=== PATIENT | male | born 1970 | race Caucasian/White ===

== ENCOUNTER → 2019-01-01 | Outpatient (CLI) | payer OTHER, SELFPAY ==
[2019-01-01 10:09] LABS: Absolute Lymphocyte Count 3.62 X10^3/ul (0.83-4.51); Absolute Neutrophil Count 3.8 X10^3/uL (2.0-7.7); Basophil# 0.04 X10^3/uL; Basophil% 0.5 % (0-1); Eosinophil# 0.19 X10^3/uL; Eosinophils% 2.3 % (0-5); Hematocrit 47.7 % (40-54); Hemoglobin 16.5 g/dl (13.0-16.5); Lymphocyte # 3.62 X10^3/ul (4.0); Lymphocyte % 44.2 % (19-41); Mean Corp Hgb Conc 34.6 g/gl (32-36); Mean Corpuscular Hgb 32.1 pg (27.0-32.0); Mean Corpuscular Volume 92.8 fL (80-94); Mean Platelet Vol. 9.6 fl (6.2-12.0); Monocyte# 0.55 X10^3/uL; Monocyte% 6.7 % (0-10); Neutrophil # 3.76 X10^3/uL (2.7-7.7); Neutrophil % 45.9 % (47-70); Platelet Count 169 K/mm3 (150-450); RBC Distribution Width CV 12.8 % (11.6-14.6); RBC Distribution Width SD 43.4 fl (35.1-43.9); Red Blood Count 5.14 M/mm3 (4.6-6.2); White Blood Count 8.2 K/mm3 (4.4-11.0)
[2019-01-01 10:20] LABS: POSITIVE COUNT NO; POSITIVE DIFFERENTIAL NO; POSITIVE MORPHOLOGY NO
[2019-01-01 10:24] LABS: Hemoglobin A1c 10.2 % (4.2-6.3)
[2019-01-01 10:49] LABS: ALB/GLOB Ratio 1.4 RATIO (0.9-2.4); AST(SGOT) 26 U/L (15-37); Alanine Aminotransfer ALT/SGPT 35 U/L (16-61); Alkaline Phosphatase 84 U/L (45-117); Anion Gap 5 (5-15); BUN 12 mg/dL (7-18); BUN/Creat Ratio 16.6 RATIO (10-20); Calcium,Total 8.4 mg/dL (8.5-10.1); Chloride 100 mmol/L (98-107); Cholesterol 157 mg/dL (200); Creatinine, Serum 0.72 mg/dL (0.70-1.30); EST Glomerular Filtration Rate 124 mL/min (>60); Est Glom Filt Rate - Afr Amer 150 mL/min (>60); Globulin 2.8 g/dL (2.2-4.2); Glucose 162 mg/dL (74-106); High Density Lipoprotein 20 mg/dL; Microalbumin,Random Urine 9.6 mg/L (NO RANGE EST.); Microalbumin:Creatinine Ratio 18.5 mg/g CRE (<30 mg/g CRE); Potassium 3.9 mmol/L (3.5-5.1); Protein, Total 6.8 g/dL (6.4-8.2); Sodium Level 135 mmol/L (136-145); Thyroid Stim Hormone (TSH) 1.74 uIU/mL (0.358-3.74); Triglycerides 806 mg/dL
== END | disposition home or self-care (01) ==
PROVIDERS: Family Provider Family Medicine; PCP Family Medicine; Referring Provider Family Medicine; Visit Provider Family Medicine
DX: E11.9 Type 2 diabetes mellitus without complications (principal); Z72.0 Tobacco use
CPT/HCPCS: 36415; 80053; 80061; 82043; 82570; 83036; 84443; 85025

== ENCOUNTER → 2019-05-10 | Outpatient (CLI) | payer OTHER, SELFPAY ==
[2019-05-10 10:29] LABS: ALB/GLOB Ratio 1.1 RATIO (0.9-2.4); AST(SGOT) 16 U/L (15-37); Alanine Aminotransfer ALT/SGPT 30 U/L (16-61); Albumin, Serum 3.7 g/dL (3.2-5.0); Alkaline Phosphatase 61 U/L (45-117); Anion Gap 8 (5-15); BUN 17 mg/dL (7-18); BUN/Creat Ratio 19.9 RATIO (10-20); Calcium,Total 8.7 mg/dL (8.5-10.1); Chloride 107 mmol/L (98-107); Cholesterol 107 mg/dL (200); Creatinine, Serum 0.86 mg/dL (0.70-1.30); EST Glomerular Filtration Rate 102 mL/min (>60); Est Glom Filt Rate - Afr Amer 123 mL/min (>60); Globulin 3.3 g/dL (2.2-4.2); Glucose 113 mg/dL (74-106); High Density Lipoprotein 28 mg/dL; Potassium 4.3 mmol/L (3.5-5.1); Sodium Level 141 mmol/L (136-145); Triglycerides 277 mg/dL; Very Low Density Lipoprotein 55 mg/dL (5-40)
[2019-05-10 10:30] LABS: Hemoglobin A1c 6.9 % (4.2-6.3)
== END | disposition home or self-care (01) ==
LOC: MFPLAB 08:15
PROVIDERS: Family Provider Family Medicine; PCP Family Medicine; Visit Provider Family Medicine
DX: E11.9 Type 2 diabetes mellitus without complications (principal); E78.1 Pure hyperglyceridemia
CPT/HCPCS: 36415; 80053; 80061; 83036

== ENCOUNTER → 2021-03-06 12:39 | Outpatient (CLI) | payer SELFPAY ==
[2021-03-06 15:19] LABS: Absolute Lymphocyte Count 3.07 X10^3/uL (0.83-4.51); Absolute Neutrophil Count 5.7 X10^3/uL (2.0-7.7); Basophil# 0.06 X10^3/uL; Basophil% 0.6 % (0-1); Eosinophil# 0.11 X10^3/uL; Eosinophils% 1.1 % (0-5); Hematocrit 51.3 % (40-54); Hemoglobin 17.2 g/dL (13.0-16.5); Lymphocyte # 3.07 X10^3/ul (0.83-4.51); Lymphocyte % 31.7 % (19-41); Mean Corp Hgb Conc 33.5 g/dL (32-36); Mean Corpuscular Volume 95.5 fL (80-94); Monocyte# 0.71 X10^3/uL; Monocyte% 7.3 % (0-10); NRBC Flagged by Analyzer 0 % (0-5); Neutrophil # 5.69 X10^3/uL (2.7-7.7); Neutrophil % 58.8 % (47-70); Platelet Count 204 K/mm3 (150-450); RBC Distribution Width CV 12.5 % (11.6-14.6); RBC Distribution Width SD 43.9 fl (35.1-43.9); Red Blood Count 5.37 M/mm3 (4.6-6.2); White Blood Count 9.7 K/mm3 (4.4-11.0)
[2021-03-06 15:37] LABS: Hemoglobin A1c 10.2 % (3.8-5.6)
[2021-03-06 15:42] LABS: ALB/GLOB Ratio 1.2 RATIO (0.9-2.4); AST(SGOT) 23 U/L (15-37); Alanine Aminotransfer ALT/SGPT 41 U/L (16-61); Alkaline Phosphatase 93 U/L (45-117); Anion Gap 8 (5-15); BUN 16 mg/dL (7-18); BUN/Creat Ratio 18.9 RATIO (10-20); Calcium,Total 8.8 mg/dL (8.5-10.1); Chloride 101 mmol/L (98-107); Cholesterol 138 mg/dL (200); Creatinine, Serum 0.85 mg/dL (0.70-1.30); EST Glomerular Filtration Rate 102 mL/min (>60); Est Glom Filt Rate - Afr Amer 124 mL/min (>60); Globulin 3.4 g/dL (2.2-4.2); Glucose 203 mg/dL (74-106); High Density Lipoprotein 22 mg/dL; Magnesium 1.7 mg/dL (1.6-2.6); Potassium 4.2 mmol/L (3.5-5.1); Protein, Total 7.4 g/dL (6.4-8.2); Sodium Level 135 mmol/L (136-145)
== END ==
PROVIDERS: PCP Family Medicine; Referring Provider Family Medicine; Visit Provider Family Medicine
DX: E11.9 Type 2 diabetes mellitus without complications (principal)
CPT/HCPCS: 36415; 80053; 82465; 83036; 83718; 83735; 85025

== ENCOUNTER → 2022-01-28 | Outpatient (CLI) | payer OTHER, SELFPAY ==
[2022-01-28 10:42] LABS: Hemoglobin A1c 9.2 % (3.8-5.6)
[2022-01-28 11:01] LABS: Microalbumin,Random Urine 10.8 mg/L (NO RANGE EST.); Microalbumin:Creatinine Ratio 6.7 mg/g CRE (<30 mg/g CRE)
[2022-01-28 11:51] LABS: ALB/GLOB Ratio 1.3 RATIO (0.9-2.4); AST(SGOT) 31 U/L (15-37); Alanine Aminotransfer ALT/SGPT 55 U/L (16-61); Albumin, Serum 3.9 g/dL (3.2-5.0); Alkaline Phosphatase 89 U/L (45-117); Anion Gap 5 (5-15); BUN 17 mg/dL (7-18); BUN/Creat Ratio 17.9 RATIO (10-20); Calcium,Total 8.8 mg/dL (8.5-10.1); Chloride 99 mmol/L (98-107); Creatinine, Serum 0.95 mg/dL (0.70-1.30); EST Glomerular Filtration Rate 90 mL/min (>60); Est Glom Filt Rate - Afr Amer 108 mL/min (>60); Globulin 2.9 g/dL (2.2-4.2); Glucose 280 mg/dL (74-106); Potassium 4.3 mmol/L (3.5-5.1); Protein, Total 6.8 g/dL (6.4-8.2); Sodium Level 132 mmol/L (136-145)
== END | disposition home or self-care (01) ==
LOC: MFPLAB 08:26
PROVIDERS: PCP Family Medicine; Visit Provider Family Medicine
DX: E11.65 Type 2 diabetes mellitus with hyperglycemia (principal)
CPT/HCPCS: 36415; 80053; 82043; 82570; 83036

== ENCOUNTER → 2022-07-24 | Outpatient (CLI) | payer MEDICARE, SELFPAY ==
[2022-07-24 10:19] LABS: Absolute Lymphocyte Count 4.28 X10^3/uL (0.83-4.51); Absolute Neutrophil Count 5.6 X10^3/uL (2.0-7.7); Basophil# 0.06 X10^3/uL; Basophil% 0.5 % (0-1); Eosinophil# 0.22 X10^3/uL; Hematocrit 48.3 % (40-54); Hemoglobin 16.1 g/dL (13.0-16.5); Lymphocyte # 4.28 X10^3/ul (0.83-4.51); Lymphocyte % 38.5 % (19-41); Mean Corp Hgb Conc 33.3 g/dL (32-36); Mean Corpuscular Hgb 32.4 pg (27.0-32.0); Mean Corpuscular Volume 97.2 fL (80-94); Monocyte# 0.92 X10^3/uL; Monocyte% 8.3 % (0-10); NRBC Flagged by Analyzer 0 % (0-5); Neutrophil # 5.56 X10^3/uL (2.7-7.7); Neutrophil % 50.1 % (47-70); Platelet Count 210 K/mm3 (150-450); RBC Distribution Width CV 13.1 % (11.6-14.6); RBC Distribution Width SD 46.7 fl (35.1-43.9); Red Blood Count 4.97 M/mm3 (4.6-6.2); White Blood Count 11.1 K/mm3 (4.4-11.0)
[2022-07-24 10:47] LABS: Hemoglobin A1c 8.5 % (3.8-5.6)
[2022-07-24 10:48] LABS: Microalbumin,Random Urine 13.1 mg/L (NO RANGE EST.); Microalbumin:Creatinine Ratio 7.2 mg/g CRE (<30 mg/g CRE)
[2022-07-24 10:57] LABS: ALB/GLOB Ratio 1.3 RATIO (0.9-2.4); AST(SGOT) 25 U/L (15-37); Alanine Aminotransfer ALT/SGPT 42 U/L (16-61); Albumin, Serum 3.6 g/dL (3.2-5.0); Alkaline Phosphatase 81 U/L (45-117); Anion Gap 8 (5-15); BUN 18 mg/dL (7-18); BUN/Creat Ratio 21.9 RATIO (10-20); Calcium,Total 8.5 mg/dL (8.5-10.1); Chloride 104 mmol/L (98-107); Creatinine, Serum 0.82 mg/dL (0.70-1.30); EST Glomerular Filtration Rate 105 mL/min (>60); Est Glom Filt Rate - Afr Amer 127 mL/min (>60); Globulin 2.8 g/dL (2.2-4.2); Glucose 171 mg/dL (74-106); Potassium 4.2 mmol/L (3.5-5.1); Protein, Total 6.4 g/dL (6.4-8.2); Sodium Level 138 mmol/L (136-145); Thyroid Stim Hormone (TSH) 1.91 uIU/mL (0.358-3.74)
== END | disposition home or self-care (01) ==
PROVIDERS: PCP Family Medicine; Referring Provider Family Medicine; Visit Provider Family Medicine
DX: E66.01 Morbid (severe) obesity due to excess calories (principal); E11.65 Type 2 diabetes mellitus with hyperglycemia; Z68.36 Body mass index [BMI] 36.0-36.9, adult
CPT/HCPCS: 36415; 80053; 82043; 82570; 83036; 84443; 85025

== ENCOUNTER → 2022-12-16 | Outpatient (CLI) | payer MEDICARE, SELFPAY ==
[2022-12-16 10:43] LABS: ALB/GLOB Ratio 1.2 RATIO (0.9-2.4); AST(SGOT) 27 U/L (15-37); Alanine Aminotransfer ALT/SGPT 47 U/L (16-61); Albumin, Serum 3.8 g/dL (3.2-5.0); Alkaline Phosphatase 66 U/L (45-117); Anion Gap 5 (5-15); BUN 12 mg/dL (7-18); BUN/Creat Ratio 12.7 RATIO (10-20); Calcium,Total 9.1 mg/dL (8.5-10.1); Chloride 103 mmol/L (98-107); Creatinine, Serum 0.95 mg/dL (0.70-1.30); EST Glomerular Filtration Rate 89 mL/min (>60); Est Glom Filt Rate - Afr Amer 108 mL/min (>60); Globulin 3.3 g/dL (2.2-4.2); Glucose 176 mg/dL (74-106); Hemoglobin A1c 8.3 % (3.8-5.6); Potassium 4.4 mmol/L (3.5-5.1); Protein, Total 7.1 g/dL (6.4-8.2); Sodium Level 136 mmol/L (136-145); Thyroid Stim Hormone (TSH) 1.45 uIU/mL (0.358-3.74)
[2022-12-16 11:14] LABS: Microalbumin,Random Urine < 5.0 mg/L (NO RANGE EST.)
== END | disposition home or self-care (01) ==
LOC: MFPLAB 08:25
PROVIDERS: PCP Family Medicine; Visit Provider Family Medicine
DX: E11.9 Type 2 diabetes mellitus without complications (principal)
CPT/HCPCS: 36415; 80053; 82043; 82570; 83036; 84443

== ENCOUNTER → 2023-05-12 | Outpatient (CLI) | payer MEDICARE, SELFPAY ==
[2023-05-12 10:34] LABS: Absolute Lymphocyte Count 2.65 X10^3/uL (0.83-4.51); Basophil# 0.05 X10^3/uL; Basophil% 0.7 % (0-1); Eosinophil# 0.16 X10^3/uL; Eosinophils% 2.1 % (0-5); Hemoglobin 17.8 g/dL (13.0-16.5); Lymphocyte # 2.65 X10^3/ul (0.83-4.51); Lymphocyte % 34.6 % (19-41); Mean Corpuscular Hgb 31.3 pg (27.0-32.0); Mean Corpuscular Volume 97.7 fL (80-94); Mean Platelet Vol. 9.5 fl (6.2-12.0); Monocyte# 0.79 X10^3/uL; Monocyte% 10.3 % (0-10); NRBC Flagged by Analyzer 0 % (0-5); Neutrophil # 3.97 X10^3/uL (2.7-7.7); Neutrophil % 51.6 % (47-70); Platelet Count 209 K/mm3 (150-450); RBC Distribution Width CV 13.4 % (11.6-14.6); Red Blood Count 5.69 M/mm3 (4.6-6.2); White Blood Count 7.7 K/mm3 (4.4-11.0)
[2023-05-12 10:40] LABS: Hematocrit 55.6 % (40-54)
[2023-05-12 11:31] LABS: ALB/GLOB Ratio 1.1 RATIO (0.9-2.4); AST(SGOT) 23 U/L (15-37); Alanine Aminotransfer ALT/SGPT 38 U/L (16-61); Albumin, Serum 3.9 g/dL (3.2-5.0); Alkaline Phosphatase 68 U/L (45-117); Anion Gap 3 (5-15); BUN 16 mg/dL (7-18); BUN/Creat Ratio 21.3 RATIO (10-20); Calcium,Total 9.5 mg/dL (8.5-10.1); Chloride 107 mmol/L (98-107); Cholesterol 109 mg/dL (200); Creatinine, Serum 0.75 mg/dL (0.70-1.30); EST Glomerular Filtration Rate 117 mL/min (>60); Est Glom Filt Rate - Afr Amer 141 mL/min (>60); Globulin 3.5 g/dL (2.2-4.2); Glucose 66 mg/dL (74-106); High Density Lipoprotein 33 mg/dL; Potassium 4.8 mmol/L (3.5-5.1); Protein, Total 7.4 g/dL (6.4-8.2); Sodium Level 139 mmol/L (136-145)
[2023-05-12 18:54] LABS: Hemoglobin A1c 6.8 % (3.8-5.6)
== END | disposition home or self-care (01) ==
LOC: MFPLAB 09:13
PROVIDERS: PCP Family Medicine; Visit Provider Family Medicine
DX: E11.65 Type 2 diabetes mellitus with hyperglycemia (principal)
CPT/HCPCS: 36415; 80053; 82465; 83036; 83718; 85025

== ENCOUNTER → 2023-12-01 | Outpatient (CLI) | payer MEDICARE, SELFPAY ==
[2023-12-01 13:21] LABS: ALB/GLOB Ratio 1.3 RATIO (0.9-2.4); AST(SGOT) 23 U/L (15-37); Alanine Aminotransfer ALT/SGPT 40 U/L (16-61); Albumin, Serum 4.1 g/dL (3.2-5.0); Alkaline Phosphatase 71 U/L (45-117); Anion Gap 5 (5-15); BUN 19 mg/dL (7-18); Calcium,Total 9.3 mg/dL (8.5-10.1); Chloride 105 mmol/L (98-107); Cholesterol 119 mg/dL (200); EST Glomerular Filtration Rate 94 mL/min (>60); Est Glom Filt Rate - Afr Amer 113 mL/min (>60); Globulin 3.2 g/dL (2.2-4.2); Glucose 116 mg/dL (74-106); High Density Lipoprotein 31 mg/dL; Potassium 4.4 mmol/L (3.5-5.1); Protein, Total 7.3 g/dL (6.4-8.2); Sodium Level 138 mmol/L (136-145); Triglycerides 225 mg/dL; Very Low Density Lipoprotein 45 mg/dL (5-40)
[2023-12-01 13:45] LABS: Hemoglobin A1c 7.6 % (3.8-5.6)
== END | disposition home or self-care (01) ==
LOC: MFPLAB 09:41
PROVIDERS: PCP Family Medicine; Visit Provider Family Medicine
DX: E11.65 Type 2 diabetes mellitus with hyperglycemia (principal); E78.5 Hyperlipidemia, unspecified; I10 Essential (primary) hypertension
CPT/HCPCS: 36415; 80053; 80061; 83036

== ENCOUNTER → 2024-05-03 | Outpatient (CLI) | payer MEDICARE, SELFPAY ==
[2024-05-03 10:30] LABS: Color, Urine Yellow (Yellow); Glucose, Dipstick Normal (Normal); Ketone-Dipstick 5 mg/dl (Negative); Leukocyte Esterase-Dipstick 500 /ul (Negative); Nitrite-Dipstick Negative (Negative); Occult Blood-Urine Negative /ul (Negative); Protein-Dipstick 15 mg/dl (Negative); Specific Gravity, Urine 1.025 (1.002-1.030); Urine Bilirubin Dipstick Negative (Negative); Urine Clarity Sl. Cloudy (Clear); Urine Urobilinogen 1 mg/dl (Normal)
[2024-05-03 10:50] LABS: ALB/GLOB Ratio 1.1 RATIO (0.9-2.4); AST(SGOT) 15 U/L (15-37); Alanine Aminotransfer ALT/SGPT 30 U/L (16-61); Albumin, Serum 3.6 g/dL (3.2-5.0); Alkaline Phosphatase 87 U/L (45-117); Anion Gap 7 (5-15); BUN 17 mg/dL (7-18); BUN/Creat Ratio 18.4 RATIO (10-20); Calcium,Total 9.5 mg/dL (8.5-10.1); Chloride 102 mmol/L (98-107); Cholesterol 98 mg/dL (200); Creatinine, Serum 0.92 mg/dL (0.70-1.30); EST Glomerular Filtration Rate 91 mL/min (>60); Est Glom Filt Rate - Afr Amer 111 mL/min (>60); Globulin 3.2 g/dL (2.2-4.2); Glucose 220 mg/dL (74-106); High Density Lipoprotein 25 mg/dL; Potassium 4.6 mmol/L (3.5-5.1); Protein, Total 6.8 g/dL (6.4-8.2); Sodium Level 138 mmol/L (136-145); Triglycerides 398 mg/dL; Very Low Density Lipoprotein 80 mg/dL (5-40)
[2024-05-03 10:53] LABS: Hemoglobin A1c 8.2 % (3.8-5.6)
[2024-05-04 10:54] LABS: Microalbumin,Random Urine 20.8 mg/L (NO RANGE EST.)
== END | disposition home or self-care (01) ==
LOC: MFPLAB 08:02
PROVIDERS: PCP Family Medicine; Visit Provider Family Medicine
DX: E11.65 Type 2 diabetes mellitus with hyperglycemia (principal)
CPT/HCPCS: 36415; 80053; 80061; 81002; 82043; 82570; 83036

== ENCOUNTER → 2024-07-06 | Outpatient (CLI) | payer MEDICARE, SELFPAY ==
[2024-07-06 10:46] LABS: Cholesterol 137 mg/dL (200); High Density Lipoprotein 29 mg/dL
[2024-07-06 11:25] LABS: Hemoglobin A1c 8.7 % (3.8-5.6)
[2024-07-07 04:08] LABS: LDL, Direct 120295 49 mg/dL (0-99)
== END | disposition home or self-care (01) ==
LOC: MTLAB 07:06
PROVIDERS: PCP Family Medicine; Referring Provider Family Medicine; Visit Provider Family Medicine
DX: E11.65 Type 2 diabetes mellitus with hyperglycemia (principal)
CPT/HCPCS: 36415; 82465; 83036; 83718; 83721

== ENCOUNTER → 2024-09-21 | Outpatient (CLI) | payer MEDICARE, SELFPAY ==
[2024-09-22 08:10] LABS: C-Peptide 5.8 ng/mL (1.1-4.4)
== END | disposition home or self-care (01) ==
LOC: MTLAB 07:18
PROVIDERS: PCP Family Medicine; Referring Provider Family Medicine; Visit Provider Family Medicine
DX: K86.89 Other specified diseases of pancreas (principal)
CPT/HCPCS: 84681

== ENCOUNTER → 2024-09-27 | Outpatient (CLI) | payer MEDICARE, SELFPAY ==
[2024-09-27 10:37] LABS: Absolute Lymphocyte Count 2.67 X10^3/uL (0.83-4.51); Basophil# 0.05 X10^3/uL; Basophil% 0.6 % (0-1); Eosinophil# 0.15 X10^3/uL; Eosinophils% 1.7 % (0-5); Hematocrit 51.5 % (40-54); Hemoglobin 16.3 g/dL (13.0-16.5); Lymphocyte # 2.67 X10^3/ul (0.83-4.51); Lymphocyte % 30.4 % (19-41); Mean Corp Hgb Conc 31.7 g/dL (32-36); Mean Corpuscular Hgb 30.5 pg (27.0-32.0); Mean Corpuscular Volume 96.4 fL (80-94); Mean Platelet Vol. 9.9 fl (6.2-12.0); Monocyte# 0.84 X10^3/uL; Monocyte% 9.6 % (0-10); NRBC Flagged by Analyzer 0 % (0-5); Neutrophil # 5.04 X10^3/uL (2.7-7.7); Neutrophil % 57.2 % (47-70); Platelet Count 202 K/mm3 (150-450); RBC Distribution Width CV 12.3 % (11.6-14.6); RBC Distribution Width SD 43.9 fl (35.1-43.9); Red Blood Count 5.34 M/mm3 (4.6-6.2); White Blood Count 8.8 K/mm3 (4.4-11.0)
[2024-09-27 11:14] LABS: AST(SGOT) 23 U/L (15-37); Alanine Aminotransfer ALT/SGPT 39 U/L (16-61); Albumin, Serum 3.6 g/dL (3.2-5.0); Alkaline Phosphatase 95 U/L (45-117); Anion Gap 6 (5-15); BUN 13 mg/dL (7-18); BUN/Creat Ratio 14.5 RATIO (10-20); Chloride 101 mmol/L (98-107); EST Glomerular Filtration Rate 95 mL/min (>60); Est Glom Filt Rate - Afr Amer 115 mL/min (>60); Globulin 3.5 g/dL (2.2-4.2); Glucose 226 mg/dL (74-106); Potassium 4.6 mmol/L (3.5-5.1); Protein, Total 7.1 g/dL (6.4-8.2); Sodium Level 136 mmol/L (136-145)
[2024-09-28 15:07] LABS: Adrenocorticotropic Hormone 11.7 pg/mL (7.2-63.3)
== END | disposition home or self-care (01) ==
LOC: MFPLAB 09:15
PROVIDERS: PCP Family Medicine; Referring Provider Family Medicine; Visit Provider Family Medicine
DX: E24.9 Cushing's syndrome, unspecified (principal)
CPT/HCPCS: 36415; 80053; 82024; 82533; 85025

== ENCOUNTER → 2024-09-28 | Outpatient (CLI) | payer MEDICARE, SELFPAY ==
[2024-10-06 17:07] LABS: Cortisol, Free 24Ur 5 ug/24 hr (5-64); Cortisol, Urinary Free 2 ug/L (Undefined)
== END | disposition home or self-care (01) ==
LOC: MFPLAB 11:22
PROVIDERS: PCP Family Medicine; Referring Provider Family Medicine; Visit Provider Family Medicine
DX: K86.89 Other specified diseases of pancreas (principal); E11.65 Type 2 diabetes mellitus with hyperglycemia
CPT/HCPCS: 36415; 81050; 82530; 82533; 82653

== ENCOUNTER → 2025-01-31 | Outpatient (CLI) | payer MEDICARE, SELFPAY ==
--- OUTSIDE RECORDS SUMMARY | 2025-01-31 07:32 | XMS RPT_ITS | CCD ---
Author Organization [facility] Care Team Providers Care Senior Engineering Team Leader Name Role Phone Jose More Unavailable Unavail able FREE, TEXT ENTRY Unavailable Unavailable Abe Soto DO Unavailable Unavailable Abe Soto Unavailable Unavailable Abe Soto Unavailable Unavailable Ball, Khadar Primary Care Unavailable Ball, Khadar Attending Unavailable Ball, Khadar Primary Care Unavailable Ball, Khadar Attending Unavailable Ball, Khadar Referring Unavailable Ball, Khadar Primary Care Unavailable Ball, Khadar Attending Unavailable Ball, Khadar Referring Unavailable Ball, Khadar Referring Unavailable Ball, Khadar Primary Care Unavailable Ball, Khadar Attending Unavailable Ball, Khadar Primary Care Unavailable Ball, Khadar Attending Unavailable Ball, Khadar Referring Unavailable Ball, Khadar Primary Care Unavailable Ball, Khadar Attending Unavailable Medications Completed/Discontinued Medications Medication Drug Class(es) Dates Sig (Normalized) Sig (Original) atorvastatin 20 mg oral tablet (2 sources) HMG-CoA Reductase Inhibitor Start: 10-18-2013 take 1 tablet by mouth once daily Atorvastatin Calcium 20 MG Oral Tablet TAKE 1 TABLET EVERY DAY Quantity: 90 Refills: 3 Abe Soto DO Start : 18-Oct-2013 Active ciprofloxacin 3 mg/ml / dexamethasone 1 mg/ml otic suspension (2 sources) Corticosteroid, Quinolone Antimicrobial Start: 04-13-2018 Ciprodex 0.3-0.1 % Otic Suspension INSTILL 3 DROPS IN AFFECTED EAR(S) TWICE DAILY. Quantity: 1 Refills: 1 Abe Soto DO Start : 13-Apr-2018 Active 7.5 ML Bottle glimepiride 2 mg oral tablet (2 sources) Sulfonylurea Start: 05-27-2018 take 1 tablet by mouth once daily Glimepiride 2 MG Oral Tablet TAKE 1 TABLET EVERY DAY DIRECTED Quantity: 30 Refills: 0 Abe Soto DO Start : 27-May-2018 Active lisinopril 10 mg oral tablet (2 sources) Angiotensin Converting Enzyme Inhibitor Start: 03-01-2014 take 1 tablet by mouth once daily Lisinopril 10 MG Oral Tablet TAKE 1 TABLET BY MOUTH EVERY DAY DIRECTED Quantity: 90 Refills: 3 Abe Soto DO Start : 01-Mar-2014 Active 24 hr metFORMIN hydrochloride 500 mg extended release oral tablet (2 sources) Biguanide Start: 11-09-2015 take 2 tablets by mouth twice daily metFORMIN HCl ER 500 MG Oral Tablet Extended Release 24 Hour TAKE 2 TABLETS TWICE DAILY Quantity: 360 Refills: 0 Abe Soto DO Start : 09-Nov-2015 Active sertraline 100 mg oral tablet (2 sources) Serotonin Reuptake Inhibitor Start: 07-22-2014 take 1 tablet by mouth once daily Sertraline HCl - 100 MG Oral Tablet TAKE 1 TABLET EVERY DAY Quantity: 90 Refills: Abe Martel DO Start : 22-Jul-2014 Active Chantix Starting Month Lv 0.5 MG X 11 & 1 MG X 42 Oral Tablet (2 sources) Partial Cholinergic Nicotinic Agonist Start: 05-03-2014 Chantix Starting Month Lv 0.5 MG X 11 & 1 MG X 42 Oral Tablet TAKE ONE 0.5MG TABLET DAILY ON DAYS 1-3, THEN ONE 0.5MG TABLET TWICE DAILY ON DAYS 4-7, THEN ONE 1MG TABLET TWICE DAILY THEREAFTER. Quantity: 2 Refills: 0 Abe Soto DO Start : 03-May-2014 Active Problems Active Problems Problem Classification Problem Date Documented Date Episodic/Chronic Adjustment disorders (2 sources) Adjustment disorder; Translations: [Unspecified adjustment reaction] Chronic Anxiety disorders (2 sources) Anxiety; Translations: [Anxiety state, unspecified] Chronic Diabetes mellitus with complications (1 source) Type 2 diabetes mellitus with hyperglycemia; Translations: [Type 2 diabetes mellitus with hyperglycemia] Onset: 08-04-2024 Chronic Diabetes mellitus without complication (2 sources) Diabetes mellitus; Translations: [Diabetes mellitus without mention of complication, type II or unspecified type, not stated as uncontrolled] Chronic Disorders of lipid metabolism (4 sources) Primary hypertriglyceridemia; Translations: [Pure hyperglyceridemia] Chronic Immunizations and screening for infectious disease (4 sources) Vaccination needed; Translations: [Need for prophylactic vaccination and inoculation against unspecified single disease] Episodic Other ear and sense organ disorders (2 sources) Otitis externa; Translations: [Infective otitis externa, unspecified] Chronic Other endocrine disorders (1 source) 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, unspecified; 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, 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 Other liver diseases (2 sources) Increased bilirubin level; Translations: [Disorders of bilirubin excretion] Episodic Other lower respiratory disease (2 sources) Dyspnea on exertion; Translations: [Shortness of breath] Episodic Other non-traumatic joint disorders (4 sources) Joint pain; Translations: [Pain in joint, site unspecified] Episodic Other nutritional; endocrine; and metabolic disorders (2 sources) Obesity; Translations: [Obesity, unspecified] Chronic Otitis media and related conditions (2 sources) Acute left otitis media; Translations: [Unspecified otitis media] Episodic Pancreatic disorders (not diabetes) (1 source) Other specified diseases of pancreas; Translations: [Other specified diseases of pancreas] Onset: 10-13-2024 Episodic Residual codes; unclassified (2 sources) History finding; Translations: [Other specified conditions influencing health status] Episodic Spondylosis; intervertebral disc disorders; other back problems (4 sources) Low back pain; Translations: [Lumbago] Episodic Unclassified (3 sources) Abnormal electrocardiogram [ECG] [EKG]; Translations: [Electrocardiogram abnormal] Onset: 06-26-2017 Episodic Unclassified (2 sources) Shortness of breath / R06.02(ICD-10) Onset: 06-26-2017 Unclassified (2 sources) Abnormal electrocardiogram [ECG] [EKG] / R94.31(ICD-10) Onset: 06-26-2017 Past or Other Problems Problem Classification Problem Date Documented Da te Episodic/Chronic Other lower respiratory disease (1 source) Shortness of breath; Translations: [Shortness of breath] Onset: 06-26-2017 Episodic NEGATED: Highlighted row has not occurred!Residual codes; unclassified (2 sources) Disease Episodic Results Test Name Value Interpretation Reference Range Facility Cortisol, 24 HR UR Freeon CORTISOL,F/24hr 5 ug/24 hr Normal 5-64 [facility] Comment on above: Order Comment: Test( s) [id number]-Haoqjpze,F,ug/L,Uwas developed and its performance characteristicsdetermined by [employer]. It has not been cleared or approvedby the Food and Drug Administration. Performed By: #### L 501.9985, L500.4100, L500.4050 #### [facility] [address] [place], [address] CORTISOL,U FREE 2 ug/L Normal Undefined [facility] Comment on above: Order Comment: Test( s) [id number]-Ryjbapos,F,ug/L,Uwas developed and its performance characteristicsdetermined by [facility]. It has not been cleared or approvedby the Food and Drug Administration. Performed By: #### L 501.9985, L500.4100, L500.4050 #### [facility] [address] [place], [address] Adrenocorticotropic Hormoneo n 09-28-2024 ACTH 11.7 pg/mL Normal 7.2-63.3 [facility] Comment on above: Order Comment: Order Date: 09/27/24Order Info: [id number] - ACTHN24 hour Result Comment: ACTH reference interval for samples collected between 7 and 10 AM. Performed at: [address] [id number] Carpet Inspector Finished: Geraldo Ruiz PhD, Phone: [phone] Performed By: #### L 501.9985, L500.4100, L500.4050 #### [facility] [address] [place], [address] CORTISOL SERUMon 09-28-2024 CORTISOL 1.10 ug/dL Low 3.44-22.45 [facility] Comment on above: Result Comment: Adul t (AM) 5.27 - 22.45 ug/dL Adult (PM) 3.44 - 16.76 ug/dL Performed By: #### L 501.9985, L500.4100, L500.4050 #### [facility] [address] [place], [address] CBC W/Diff, Automatedon 09-18 Absolute Lymph 2.67 X10 3/uL Normal 0.83-4.51 [facility] Comment on above: Performed By: #### L 100.0100 #### [facility] [address] [place], [address] Absolute Neut 5.0 X10 3/uL Normal 2.0-7.7 [facility] Comment on above: Performed By: #### L 100.0100 #### [facility] [address] [place], [address] Basophils/100 WBC (Bld) 0.6 % Normal 0-1 [facility] Comment on above: Performed By: #### L 100.0100 #### [facility] [address] [place], [address] Eosinophils/100 WBC (Bld) 1.7 % Normal 0-5 [facility] Comment on above: Performed By: #### L 100.0100 #### [facility] [address] [place], [address] Erythrocyte distribution width (RBC) [Ratio] 12.3 % Normal 11.6-14.6 [facility] Comment on above: Performed By: #### L 100.0100 #### [facility] [address] [place], [address] Hematocrit (Bld) [Volume fraction] 51.5 % Normal 40-54 [facility] Comment on above: Performed By: #### L 100.0100 #### [facility] [address] [place], [address] Hemoglobin (Bld) [Mass/Vol] 16.3 g/dL Normal 13.0-16.5 [facility] Comment on above: Performed By: #### L 100.0100 #### [facility] [address] [place], [address] IG% 0.500 Normal 0.0-0.9 [facility] Comment on above: Result Comment: IG% - Immature Granulocytes (promyelocytes, myelocytes and metamyelocytes) > 1% indicates that a LEFT SHIFT is Present. Performed By: #### L 100.0100 #### [facility] [address] [place], [address] Lymphocytes/100 WBC (Bld) 30.4 % Normal 19-41 [facility] Comment on above: Performed By: #### L 100.0100 #### [facility] [address] [place], [address] MCH (RBC) [Entitic mass] 30.5 pg Normal 27.0-32.0 [facility] Comment on above: Performed By: #### L 100.0100 #### [facility] [address] [place], [address] MCHC (RBC) [Mass/Vol] 31.7 g/dL Low 32-36 [facility] [place] Comment on above: Performed By: #### L 100.0100 #### [facility] [address] [place], [address] MCV (RBC) [Entitic vol] 96.4 fL High 80-94 [facility] Comment on above: Performed By: #### L 100.0100 #### [facility] [address] [place], [address] Monocytes/100 WBC (Bld) 9.6 % Normal 0-10 [facility] Comment on above: Performed By: #### L 100.0100 #### [facility] [address] [place], [address] Neutrophils/100 WBC (Bld) 57.2 % Normal 47-70 [facility] Comment on above: Performed By: #### L 100.0100 #### [facility] [address] [place], [address] Nucleated RBC (Bld) [#/Vol] 0 10*3/uL Normal 0-5 [facility] Comment on above: Performed By: #### L 100.0100 #### [facility] [address] [place], [address] Platelet mean volume (Bld) [Entitic vol] 9.9 fL Normal 6.2-12.0 [facility] Comment on above: Performed By: #### L 100.0100 #### [facility] [address] [place], [address] Platelets (Bld) [#/Vol] 202 10*3/uL Normal 150-450 [facility] Comment on above: Performed By: #### L 100.0100 #### [facility] [address] [place], [address] RBC (Bld) [#/Vol] 5.34 10*6/uL Normal 4.6-6.2 [facility] Comment on above: Performed By: #### L 100.0100 #### [facility] [address] [place], [address] RDW SD 43.9 fl Normal 35.1-43.9 [facility] Comment on above: Performed By: #### L 100.0100 #### [facility] [address] [place], [address] WBC (Bld) [#/Vol] 8.8 10*3/uL Normal 4.4-11.0 [facility] Comment on above: Performed By: #### L 100.0100 #### [facility] [address] [place], [address] CORTISOL SERUMon 09-27-2024 CORTISOL 4.70 ug/dL Normal 3.44-22.45 [facility] Comment on above: Order Comment: Inter face Comments:24 hourOrder Date: 09/27/24Order Info: 2143-6 - CORT24 hour24 hour Result Comment: Adul t (AM) 5.27 - 22.45 ug/dL Adult (PM) 3.44 - 16.76 ug/dL Performed By: #### L 501.9985, L500.4100, L500.4050 #### [facility] [address] [place], [address] Comprehensive Metabolic Prof ilon 09-27-2024 Albumin [Mass/Vol] 3.6 g/dL Normal 3.2-5.0 [facility] Comment on above: Order Comment: Order Date: 09/27/24 Order Info: 0786-1 - CMP 24 hour Performed By: #### L 3300.1000, L500.4050 #### [facility] [address] [place], [address] Albumin/Globulin [Mass ratio] 1.0 {ratio} Normal 0.9-2.4 [facility] Comment on above: Order Comment: Order Date: 09/27/24 Order Info: 0786-1 - CMP 24 hour Performed By: #### L 3300.1000, L500.4050 #### [facility] [address] [place], [address] ALK P 95 U/L Normal 45-117 [facility] Comment on above: Order Comment: Order Date: 09/27/24 Order Info: 0786-1 - CMP 24 hour Performed By: #### L 3300.1000, L500.4050 #### [facility] [address] [place], [address] ALT [Catalytic activity/Vol] 39 U/L Normal 16-61 [facility] Comment on above: Order Comment: Order Date: 09/27/24 Order Info: 0786-1 - CMP 24 hour Performed By: #### L 3300.1000, L500.4050 #### [facility] [address] [place], [address] AST [Catalytic activity/Vol] 23 U/L Normal 15-37 [facility] Comment on above: Order Comment: Order Date: 09/27/24 Order Info: 0786-1 - CMP 24 hour Performed By: #### L 3300.1000, L500.4050 #### [facility] [address] [place], [address] Bilirubin [Mass/Vol] 0.90 mg/dL Normal 0.20-1.00 [place] Comment on above: Order Comment: Order Date: 09/27/24 Order Info: 0786-1 - CMP 24 hour Result Comment: For patients on eltrombopag therapy, use of Dimension [place] TBIL is not recommended. Performed By: #### L 3300.1000, L500.4050 #### [facility] [address] [place], [address] BUN/CRE 14.5 RATIO Normal 10-20 [facility] Comment on above: Order Comment: Order Date: 09/27/24 Order Info: 0786-1 - CMP 24 hour Performed By: #### L 3300.1000, L500.4050 #### [facility] [address] [place], [address] CA,Total 9.0 mg/dL Normal 8.5-10.1 [facility] Comment on above: Order Comment: Order Date: 09/27/24 Order Info: 0786-1 - CMP 24 hour Performed By: #### L 3300.1000, L500.4050 #### [facility] [address] [place], [address] Chloride [Moles/Vol] 101 mmol/L Normal 98-107 [place] Comment on above: Order Comment: Order Date: 09/27/24 Order Info: 0786-1 - CMP 24 hour Performed By: #### L 3300.1000, L500.4050 #### [facility] [address] [place], [address] CO2 [Moles/Vol] 29.0 mmol/L Normal 21.0-32.0 [facility] Comment on above: Order Comment: Order Date: 09/27/24 Order Info: 0786-1 - CMP 24 hour Performed By: #### L 3300.1000, L500.4050 #### [facility] [address] [place], [address] Creatinine [Mass/Vol] 0.90 mg/dL Normal 0.70-1.30 [facility] Comment on above: Order Comment: Order Date: 09/27/24 Order Info: 0786-1 - [facility] 24 hour Result Comment: The validity of the calculated GFR GFRAA in patients over 70 years has not been determined. Clinical correlation is essential. Performed By: #### L 3300.1000, L500.4050 #### [facility] [address] [place], [address] EST GFR - AA 115 mL/min Normal >60 [facility] Comment on above: Order Comment: Order Date: 09/27/24 Order Info: 0786-1 - [facility] 24 hour Result Comment: Afri can [place] GFR Calc Performed By: #### L 3300.1000, L500.4050 #### [facility] [address] [place], [address] GAP 6 Normal 5-15 [facility] Comment on above: Order Comment: Order Date: 09/27/24 Order Info: 0786-1 - [facility] 24 hour Performed By: #### L 3300.1000, L500.4050 #### [facility] [address] [place], [address] GFR/1.73 sq M.predicted among non-blacks MDRD (S/P/Bld) [Vol rate/Area] 95 mL/min/{1.73_m2} Normal >60 [facility] Comment on above: Order Comment: Order Date: 09/27/24 Order Info: 0786-1 - [facility] 24 hour Result Comment: Non- GFR Calc Performed By: #### L 3300.1000, L500.4050 #### [facility] [address] [place], [address] Globulin (S) [Mass/Vol] 3.5 g/dL Normal 2.2-4.2 [facility] Comment on above: Order Comment: Order Date: 09/27/24 Order Info: 0786-1 - CMP 24 hour Performed By: #### L 3300.1000, L500.4050 #### [facility] [address] [place], [address] Glucose [Mass/Vol] 226 mg/dL High 74-106 [facility] Comment on above: Order Comment: Order Date: 09/27/24 Order Info: 0786-1 - CMP 24 hour Result Comment: Gluc ose result greater than or equal to 200 mg/dL suggests DIABETES MELLITUS per A.D.A. criteria. Performed By: #### L 3300.1000, L500.4050 #### [facility] [address] [place], [address] Potassium [Moles/Vol] 4.6 mmol/L Normal 3.5-5.1 [facility] Comment on above: Order Comment: Order Date: 09/27/24 Order Info: 0786-1 - CMP 24 hour Performed By: #### L 3300.1000, L500.4050 #### [facility] [address] [place], [address] Sodium [Moles/Vol] 136 mmol/L Normal 136-145 [facility] Comment on above: Order Comment: Order Date: 09/27/24 Order Info: 0786-1 - CMP 24 hour Performed By: #### L 3300.1000, L500.4050 #### [facility] [address] [place], [address] T PROT 7.1 g/dL Normal 6.4-8.2 [facility] Comment on above: Order Comment: Order Date: 09/27/24 Order Info: 0786-1 - CMP 24 hour Performed By: #### L 3300.1000, L500.4050 #### [facility] [address] [place], [place], [id number] Urea nitrogen [Mass/Vol] 13 mg/dL Normal 7-18 [facility] Comment on above: Order Comment: Order Date: 09/27/24 Order Info: 0786-1 - CMP 24 hour Performed By: #### L 3300.1000, L500.4050 #### [facility] [address] [place], [place], [address] C-Peptideon 09-22-2024 C PEPTIDE 5.8 ng/mL High 1.1-4.4 [facility] Comment on above: Order Comment: Order Date: 07/12/24 Order Info: 1986-04 - CPEP ELASTASE WAS ORDERED BUT CAME IN A BAGGY. CANCELED Result Comment: C-Pe ptide reference interval is for fasting patients. Performed at: [facility] [id number] Carpet Inspector Finished: Geraldo Ruiz PhD, Phone: [phone] Performed By: #### L 2605.4394 #### [facility] [address] [place], [place], [address] LDL, Directon 07-07-2024 Cholesterol in LDL [Mass/Vol] 49 mg/dL Normal 0-99 [facility] Comment on above: Order Comment: Order Date: 05/10/24 Order Info: [id number] - LDLD Result Comment: Perf ormed at: [facility] [employer] [id number] Carpet Inspector Finished: Geraldo Ruiz PhD, Phone: [phone] Performed By: #### L 501.4900, [id number], L501.6400, L3300.6619 #### [facility] [address] [place], [place], [id number] COMMENT TNP Normal . [facility] Comment on above: Order Comment: Order Date: 05/10/24 Order Info: 48844-0 - LDLD Performed By: #### L 501.4900, L501.9985, L501.6400, L3300.4498 #### [facility] [address] [place], [address] Cholesterolon 07-06-2024 Cholesterol [Mass/Vol] 137 mg/dL Normal 200 [facility] Comment on above: Order Comment: Order Date: 05/10/24 Order Info: 2092-10 - CHOL Order Info: 2085-04 - HDL Result Comment: <200 mg/dL Desirable 200-240 mg/dL Borderline >240 mg/dL High Risk Performed By: #### L 501.4900, L501.9985, L501.6400, L3300.4490 #### [facility] [address] [place], [address] Hemoglobin A1con 07-06-2024 HbA1c (Bld) [Mass fraction] 8.7 % High 3.8-5.6 [facility] Comment on above: Order Comment: Order Date: 05/10/24 Order Info: 4548-4 - A1C Result Comment: Norm al < 5.7 % Prediabetic 5.7 - 6.4 % Diabetic >or= 6.5 % Please note range changes. Performed By: #### L 501.4900, L501.9985, L501.6400, L3300.4490 #### [facility] [address] [place], [address] High Density Lipoproteinon 09-05-2023 Cholesterol in HDL [Mass/Vol] 29 mg/dL Low [facility] Comment on above: Order Comment: Order Date: 05/10/24 Order Info: 2092-10 - CHOL Order Info: 2085-04 - HDL Result Comment: The drugs N-Acetylcysteine and Metamizole may falsely depress this assay. Reference Range HDL <40 mg/dL Low HDL Cholesterol HDL >or= 60 mg/dL High HDL Cholesterol Performed By: #### L 501.4900, L501.9985, L501.6400, L3300.4490 #### [facility] [address] [place], [address] Microalb:Creat Ratio,Random URon 05-04-2024 Creatinine [Mass/Vol] 299.00 mg/dL Normal NO RAN GE EST. [facility] Comment on above: Order Comment: PER O FFICE-ADD ON TO TEST DONE 05-03Interce Comments:add onOrder Date: 05/04/24Order Info: [id number] - MIACREComments: add on Performed By: #### L 501.9985, L500.4100, L500.4050 #### [facility] [address] [place], [address] MALB:CRE 7.0 mg/g CRE Normal <30 mg/g CRE [facility] Comment on above: Order Comment: PER O FFICE-ADD ON TO TEST DONE 05-03 Comments:add onOrder Date: 05/04/24Order Info: [id number] - MIACREComments: add on Performed By: #### L 501.9985, L500.4100, L500.4050 #### [facility] [address] [place], [place], [id number] MICROALBUMIN,UR 20.8 mg/L Normal NO RANGE EST. [facility] Comment on above: Order Comment: PER O FFICE-ADD ON TO TEST DONE 05-03Inter Comments:add onOrder Date: 05/04/24Order Info: [id number] - MIACREComments: add on Performed By: #### L 501.9985, L500.4100, L500.4050 #### [facility] [address] [place], [address] Comprehensive Metabolic Prof ilon 05-03-2024 Albumin [Mass/Vol] 3.6 g/dL Normal 3.2-5.0 [facility] Comment on above: Order Comment: Order Date: 05/03/24Order Info: 0786-1 - CMPOrder Info: [id number] - LIPID Performed By: #### L 501.9985, L500.4100, L500.4050 #### [facility] [address] [place], [address] Albumin/Globulin [Mass ratio] 1.1 {ratio} Normal 0.9-2.4 [facility] Comment on above: Order Comment: Order Date: 05/03/24Order Info: 0786-1 - CMPOrder Info: [id number] - LIPID Performed By: #### L 501.9985, L500.4100, L500.4050 #### [facility] [address] [place], [address] ALK P 87 U/L Normal 45-117 [facility] Comment on above: Order Comment: Order Date: 05/03/24Order Info: 785- - CMPOrder Info: [id number] - LIPID Performed By: #### L 501.9985, L500.4100, L500.4050 #### [facility] [address] [place], [address] ALT [Catalytic activity/Vol] 30 U/L Normal 16-61 [facility] Comment on above: Order Comment: Order Date: 05/03/24Order Info: 07- - CMPOrder Info: [id number] - LIPID Performed By: #### L 501.9985, L500.4100, L500.4050 #### [facility] [address] [place], [address] AST [Catalytic activity/Vol] 15 U/L Normal 15-37 [facility] Comment on above: Order Comment: Order Date: 05/03/24Order Info: [id number] - CMPOrder Info: [id number] - LIPID Performed By: #### L [id number], L500.4100, L500.4050 #### [facility] [address] [place], [address] Bilirubin [Mass/Vol] 0.70 mg/dL Normal 0.20-1.00 [place] Comment on above: Order Comment: Order Date: 05/03/24Order Info: 07-1 - CMPOrder Info: [id number] - LIPID Result Comment: For patients on eltrombopag therapy, use of Dimension [place] TBIL is not recommended. Performed By: #### L 501.9985, L500.4100, L500.4050 #### [facility] [address] [place], [address] BUN/CRE 18.4 RATIO Normal 10-20 [facility] Comment on above: Order Comment: Order Date: 05/03/24Order Info: [id number] - CMPOrder Info: [id number] - LIPID Performed By: #### L 501.9985, L500.4100, L500.4050 #### [facility] [address] [place], [address] CA,Total 9.5 mg/dL Normal 8.5-10.1 [facility] Comment on above: Order Comment: Order Date: 05/03/24Order Info: [id number] - CMPOrder Info: [id number] - LIPID Performed By: #### L [id number], L500.4100, L500.4050 #### [facility] [address] [place], [address] Chloride [Moles/Vol] 102 mmol/L Normal 98-107 [place] Comment on above: Order Comment: Order Date: 05/03/24Order Info: [id number] - CMPOrder Info: [id number] - LIPID Performed By: #### L 501.9985, L500.4100, L500.4050 #### [facility] [address] [place], [address] CO2 [Moles/Vol] 29.0 mmol/L Normal 21.0-32.0 [facility] Comment on above: Order Comment: Order Date: 05/03/24Order Info: [id number] - CMPOrder Info: [id number] - LIPID Performed By: #### L [id number], L500.4100, L500.4050 #### [facility] [address] [place], [address] Creatinine [Mass/Vol] 0.92 mg/dL Normal 0.70-1.30 [facility] [place] Comment on above: Order Comment: Order Date: 05/03/24Order Info: [id number] - CMPOrder Info: [id number] - LIPID Result Comment: The validity of the calculated GFR GFRAA in patients over 70 years has not been determined. Clinical correlation is essential. Performed By: #### L 501.9985, L500.4100, L500.4050 #### [facility] [address] [place], [address] EST GFR - AA 111 mL/min Normal >60 [facility] Comment on above: Order Comment: Order Date: 05/03/24Order Info: [id number] - CMPOrder Info: [id number] - LIPID Result Comment: Afri can [place]kin[place] GFR Calc Performed By: #### L 501.9985, L500.4100, L500.4050 #### [facility] [address] [place], [address] GAP 7 Normal 5-15 [facility] Comment on above: Order Comment: Order Date: 05/03/24Order Info: [id number]- - CMPOrder Info: [id number] - LIPID Performed By: #### L 501.9985, L500.4100, L500.4050 #### [facility] [address] [place], [address] GFR/1.73 sq M.predicted among non-blacks MDRD (S/P/Bld) [Vol rate/Area] 91 mL/min/{1.73_m2} Normal >60 [facility] Comment on above: Order Comment: Order Date: 05/03/24Order Info: [id number] - CMPOrder Info: [id number] - LIPID Result Comment: Non- GFR Calc Performed By: #### L 501.9985, L500.4100, L500.4050 #### [facility] [address] [place], [address] Globulin (S) [Mass/Vol] 3.2 g/dL Normal 2.2-4.2 [facility] Comment on above: Order Comment: Order Date: 05/03/24Order Info: 07- - CMPOrder Info: [id number] - LIPID Performed By: #### L 501.9985, L500.4100, L500.4050 #### [facility] [address] [place], [address] Glucose [Mass/Vol] 220 mg/dL High 74-106 [facility] Comment on above: Order Comment: Order Date: 05/03/24Order Info: [id number] - CMPOrder Info: [id number] - LIPID Result Comment: Gluc ose result greater than or equal to 200 mg/dL suggests DIABETES MELLITUS per A.D.A. criteria. Performed By: #### L 501.9985, L500.4100, L500.4050 #### [facility] [address] [place], [address] Potassium [Moles/Vol] 4.6 mmol/L Normal 3.5-5.1 [facility] [place] Comment on above: Order Comment: Order Date: 05/03/24Order Info: [id number] - CMPOrder Info: [id number] - LIPID Performed By: #### L 501.9985, L500.4100, L500.4050 #### [facility] [address] [place], [address] Sodium [Moles/Vol] 138 mmol/L Normal 136-145 [facility] Comment on above: Order Comment: Order Date: 05/03/24Order Info: [id number]- - CMPOrder Info: [id number] - LIPID Performed By: #### L 501.9985, L500.4100, L500.4050 #### [facility] [address] [place], [address] T PROT 6.8 g/dL Normal 6.4-8.2 [facility] Comment on above: Order Comment: Order Date: 05/03/24Order Info: [id number] - CMPOrder Info: [id number] - LIPID Performed By: #### L [id number], L500.4100, L500.4050 #### [facility] [address] [place], [address] Urea nitrogen [Mass/Vol] 17 mg/dL Normal 7-18 [facility] Comment on above: Order Comment: Order Date: 05/03/24Order Info: [id number] - CMPOrder Info: [id number] - LIPID Performed By: #### L [id number], L500.4100, L500.4050 #### [facility] [address] [place], [address] Hemoglobin A1con 05-03-2024 HbA1c (Bld) [Mass fraction] 8.2 % High 3.8-5.6 [facility] Comment on above: Order Comment: Order Date: 05/03/24Order Info: [id number] - A1C Result Comment: Norm al < 5.7 % Prediabetic 5.7 - 6.4 % Diabetic >or= 6.5 % Please note range changes. Performed By: #### L 501.9985, L500.4100, L500.4050 #### [facility] [address] [place], [address] Lipid Profileon 05-03-2024 Cholesterol [Mass/Vol] 98 mg/dL Normal 200 [facility] Comment on above: Order Comment: Order Date: 05/03/24Order Info: [id number] - CMPOrder Info: [id number] - LIPID Result Comment: <200 mg/dL Desirable 200-240 mg/dL Borderline >240 mg/dL High Risk Performed By: #### L 501.9985, L500.4100, L500.4050 #### [facility] [address] [place], [address] Cholesterol in HDL [Mass/Vol] 25 mg/dL Low [facility] Comment on above: Order Comment: Order Date: 05/03/24Order Info: [id number]- - CMPOrder Info: [id number] - LIPID Result Comment: The drugs N-Acetylcysteine and Metamizole may falsely depress this assay. Reference Range HDL <40 mg/dL Low HDL Cholesterol HDL >or= 60 mg/dL High HDL Cholesterol Performed By: #### L 501.9985, L500.4100, L500.4050 #### [facility] [address] [place], [address] Cholesterol in LDL [Mass/Vol] -7 mg/dL Low 0-130 [facility] Comment on above: Order Comment: Order Date: 05/03/24Order Info: [id number]- - CMPOrder Info: [id number] - LIPID Performed By: #### L 501.9985, L500.4100, L500.4050 #### [facility] [address] [place], [address] Cholesterol in VLDL [Mass/Vol] 80 mg/dL High 5-40 [facility] Comment on above: Order Comment: Order Date: 05/03/24Order Info: [id number]- - CMPOrder Info: [id number] - LIPID Performed By: #### L 501.9985, L500.4100, L500.4050 #### [facility] [address] [place], [address] Triglyceride [Mass/Vol] 398 mg/dL High [facility] Comment on above: Order Comment: Order Date: 05/03/24Order Info: [id number]- - CMPOrder Info: [id number] - LIPID Result Comment: The drugs N-Acetylcysteine and Metamizole may falsely depress this assay. Serum Triglycerides Reference Interval Normal <150 mg/dL Borderline high 150 - 199 mg/dL High 200 - 499 mg/dL Very High > or = 500 mg/dL Performed By: #### L 501.9985, L500.4100, L500.4050 #### [facility] [address] [place], [address] Urinalysis, Routine (Dipstic k)on 05-03-2024 BILIRUBIN URINE Negative Normal Negative [facility] Comment on above: Order Comment: Order Date: 05/03/24Order Info: [id number] - UACOLLECTOR TO SPECIFY Performed By: #### L 501.9985, L500.4100, L500.4050 #### [facility] [address] [place], [address] Clarity (U) Sl. Cloudy Normal Clear [facility] Comment on above: Order Comment: Order Date: 05/03/24Order Info: [id number] - UACOLLECTOR TO SPECIFY Performed By: #### L 501.9985, L500.4100, L500.4050 #### [facility] [address] [place], [address] Color (U) Yellow Normal Yellow [facility] Comment on above: Order Comment: Order Date: 05/03/24Order Info: [id number] - UACOLLECTOR TO SPECIFY Performed By: #### L 501.9985, L500.4100, L500.4050 #### [facility] [address] [place], [address] GLUCOSE, UR Normal Normal Normal [facility] Comment on above: Order Comment: Order Date: 05/03/24Order Info: [id number] - UACOLLECTOR TO SPECIFY Performed By: #### L 501.9985, L500.4100, L500.4050 #### [facility] [address] [place], [address] KETONE UR 5 mg/dl Abnormal Negative [facility] Comment on above: Order Comment: Order Date: 05/03/24Order Info: [id number] - UACOLLECTOR TO SPECIFY Performed By: #### L 501.9985, L500.4100, L500.4050 #### [facility] [address] [place], [address] LEUK ESTERASE 500 /ul Abnormal Negative [facility] Comment on above: Order Comment: Order Date: 05/03/24Order Info: 609-08 - UACOLLECTOR TO SPECIFY Performed By: #### L 501.9985, L500.4100, L500.4050 #### [facility] [address] [place], [address] Nitrite Ql (U) Negative Normal Negative [facility] Comment on above: Order Comment: Order Date: 05/03/24Order Info: 609-08 - UACOLLECTOR TO SPECIFY Performed By: #### L 501.9985, L500.4100, L500.4050 #### [facility] [address] [place], [address] OCCULT BLOOD-UR Negative Normal Negative [facility] Comment on above: Order Comment: Order Date: 05/03/24Order Info: 609-08 - UACOLLECTOR TO SPECIFY Performed By: #### L 501.9985, L500.4100, L500.4050 #### [facility] [address] [place], [address] pH UR 5.0 Normal 5.0 - 8.0 [facility] Comment on above: Order Comment: Order Date: 05/03/24Order Info: 609-08 - UACOLLECTOR TO SPECIFY Performed By: #### L 501.9985, L500.4100, L500.4050 #### [facility] [address] [place], [address] PROT DIPSTX 15 mg/dl Abnormal Negative [facility] Comment on above: Order Comment: Order Date: 05/03/24Order Info: 609-08 - UACOLLECTOR TO SPECIFY Performed By: #### L 501.9985, L500.4100, L500.4050 #### [facility] [address] [place], [address] SP.GR. DIPSTX 1.025 Normal 1.002-1.030 [facility] Comment on above: Order Comment: Order Date: 05/03/24Order Info: [id number] - UACOLLECTOR TO SPECIFY Performed By: #### L 501.9985, L500.4100, L500.4050 #### [facility] [address] [place], [address] UROBILI 1 mg/dl Abnormal Normal [facility] Comment on above: Order Comment: Order Date: 05/03/24Order Info: [id number] - UACOLLECTOR TO SPECIFY Performed By: #### L 501.9985, L500.4100, L500.4050 #### [facility] [address] [place], [address] Basophil percentageOrdered B y: Khadar Ball on 12-01-2023 Bilirubin [Mass/Vol] 1.50 mg/dL 0.20-1.00 [place] Comment on above: For patients on eltr ombopag therapy, use of Dimension [place] TBIL is not recommended. Chloride [Moles/Vol] 105 mmol/L 98-107 [place] Cholesterol [Mass/Vol] 119 mg/dL <200 [facility] Comment on above: <200 mg/dL Desirable 200-240 mg/dL Borderline >240 mg/dL High Risk Glucose [Mass/Vol] 116 mg/dL 74-106 [facility] Comment on above: Fasting Glucose resu lt from 100 to 125 mg/dL suggests IMPAIRED HOMEOSTASIS per A.D.A. criteria. Potassium [Moles/Vol] 4.4 mmol/L 3.5-5.1 [facility] [place] Protein [Mass/Vol] 7.3 g/dL 6.4-8.2 [facility] Sodium [Moles/Vol] 138 mmol/L 136-145 [facility] Triglyceride [Mass/Vol] 225 mg/dL <199 [facility] Comment on above: The drugs N-Acetylcy steine and Metamizole may falsely depress this assay.Serum Triglycerides Reference Interval Normal <150 mg/dL Borderline high 150 - 199 mg/dL High 200 - 499 mg/dL Very High > or = 500 mg/dL Comprehensive Metabolic Prof ilon 12-01-2023 Albumin [Mass/Vol] 4.1 g/dL Normal 3.2-5.0 [facility] Comment on above: Performed By: #### L 501.9985, L500.4100, L500.4050 #### [facility] [address] [place], [address] Albumin/Globulin [Mass ratio] 1.3 {ratio} Normal 0.9-2.4 [facility] Comment on above: Performed By: #### L 501.9985, L500.4100, L500.4050 #### [facility] [address] [place], [address] ALK P 71 U/L Normal 45-117 [facility] Comment on above: Performed By: #### L 501.9985, L500.4100, L500.4050 #### [facility] [address] [place], [address] ALT [Catalytic activity/Vol] 40 U/L Normal 16-61 [facility] Comment on above: Performed By: #### L 501.9985, L500.4100, L500.4050 #### [facility] [address] [place], [address] AST [Catalytic activity/Vol] 23 U/L Normal 15-37 [facility] Comment on above: Performed By: #### L 501.9985, L500.4100, L500.4050 #### [facility] [address] [place], [address] Bilirubin [Mass/Vol] 1.50 mg/dL High 0.20-1.00 [place] Comment on above: Result Comment: For patients on eltrombopag therapy, use of Dimension [place] TBIL is not recommended. Performed By: #### L 501.9985, L500.4100, L500.4050 #### [facility] [address] [place], [address] BUN/CRE 21.0 RATIO High 10-20 [facility] Comment on above: Performed By: #### L 501.9985, L500.4100, L500.4050 #### [facility] [address] [place], [address] CA,Total 9.3 mg/dL Normal 8.5-10.1 [facility] Comment on above: Performed By: #### L 501.9985, L500.4100, L500.4050 #### [facility] [address] [place], [address] Chloride [Moles/Vol] 105 mmol/L Normal 98-107 [place] Comment on above: Performed By: #### L 501.9985, L500.4100, L500.4050 #### [facility] [address] [place], [address] CO2 [Moles/Vol] 28.0 mmol/L Normal 21.0-32.0 [facility] Comment on above: Performed By: #### L 501.9985, L500.4100, L500.4050 #### [facility] [address] [place], [address] Creatinine [Mass/Vol] 0.90 mg/dL Normal 0.70-1.30 [facility] [place] Comment on above: Result Comment: The validity of the calculated GFR GFRAA in patients over 70 years has not been determined. Clinical correlation is essential. Performed By: #### L 501.9985, L500.4100, L500.4050 #### [facility] [address] [place], [address] EST GFR - AA 113 mL/min Normal >60 [facility] Comment on above: Result Comment: Afri can [place] GFR Calc Performed By: #### L 501.9985, L500.4100, L500.4050 #### [facility] [address] [place], [address] GAP 5 Normal 5-15 [facility] Comment on above: Performed By: #### L 501.9985, L500.4100, L500.4050 #### [facility] [address] [place], [address] GFR/1.73 sq M.predicted among non-blacks MDRD (S/P/Bld) [Vol rate/Area] 94 mL/min/{1.73_m2} Normal >60 [facility] Comment on above: Result Comment: Non- GFR Calc Performed By: #### L 501.9985, L500.4100, L500.4050 #### [facility] [address] [place], [address] Globulin (S) [Mass/Vol] 3.2 g/dL Normal 2.2-4.2 [facility] Comment on above: Performed By: #### L 501.9985, L500.4100, L500.4050 #### [facility] [address] [place], [address] Glucose [Mass/Vol] 116 mg/dL High 74-106 [facility] Comment on above: Result Comment: Fast ing Glucose result from 100 to 125 mg/dL suggests IMPAIRED HOMEOSTASIS per A.D.A. criteria. Performed By: #### L 501.9985, L500.4100, L500.4050 #### [facility] [address] [place], [address] Potassium [Moles/Vol] 4.4 mmol/L Normal 3.5-5.1 [facility] [place] Comment on above: Performed By: #### L 501.9985, L500.4100, L500.4050 #### [facility] [address] [place], [address] Sodium [Moles/Vol] 138 mmol/L Normal 136-145 [facility] Comment on above: Performed By: #### L 501.9985, L500.4100, L500.4050 #### [facility] [address] [place], [address] T PROT 7.3 g/dL Normal 6.4-8.2 [facility] Comment on above: Performed By: #### L 501.9985, L500.4100, L500.4050 #### [facility] [address] [place], [address] Urea nitrogen [Mass/Vol] 19 mg/dL High 7-18 [facility] Comment on above: Performed By: #### L 501.9985, L500.4100, L500.4050 #### [facility] [address] [place], [address] Hemoglobin A1con 12-01-2023 HbA1c (Bld) [Mass fraction] 7.6 % High 3.8-5.6 [facility] Comment on above: Result Comment: Norm al < 5.7 % Prediabetic 5.7 - 6.4 % Diabetic >or= 6.5 % Please note range changes. Performed By: #### L 501.9985, L500.4100, L500.4050 #### [facility] [address] [place], [address] Laboratory - Chemistry and C hemistry - challengeOrdered By: Khadar Ball on 12-01-2023 Albumin/Globulin [Mass ratio] 1.3 {ratio} 0.9-2.4 [facility] ALP [Catalytic activity/Vol] 71 U/L 45-117 [facility] ALT [Catalytic activity/Vol] 40 U/L 16-61 [facility] Cholesterol in HDL [Mass/Vol] 31 mg/dL >40 [facility] Comment on above: The drugs N-Acetylcy steine and Metamizole may falsely depress this assay. Reference Range HDL <40 mg/dL Low HDL Cholesterol HDL >or= 60 mg/dL High HDL Cholesterol Cholesterol in LDL [Mass/Vol] 43 mg/dL 0-130 [facility] CO2 [Moles/Vol] 28.0 mmol/L 21.0-32.0 [facility] Globulin (S) [Mass/Vol] 3.2 g/dL 2.2-4.2 [facility] Urea nitrogen/Creatinine [Mass ratio] 21.0 mg/mg 10-20 [facility] Lipid Profileon 12-01-2023 Cholesterol [Mass/Vol] 119 mg/dL Normal 200 [facility] Comment on above: Result Comment: <200 mg/dL Desirable 200-240 mg/dL Borderline >240 mg/dL High Risk Performed By: #### L 501.9985, L500.4100, L500.4050 #### [facility] [address] [place], [address] Cholesterol in HDL [Mass/Vol] 31 mg/dL Low [facility] Comment on above: Result Comment: The drugs N-Acetylcysteine and Metamizole may falsely depress this assay. Reference Range HDL <40 mg/dL Low HDL Cholesterol HDL >or= 60 mg/dL High HDL Cholesterol Performed By: #### L 501.9985, L500.4100, L500.4050 #### [facility] [address] [place], [address] Cholesterol in LDL [Mass/Vol] 43 mg/dL Normal 0-130 [facility] Comment on above: Performed By: #### L 501.9985, L500.4100, L500.4050 #### [facility] [address] [place], [address] Cholesterol in VLDL [Mass/Vol] 45 mg/dL High 5-40 [facility] Comment on above: Performed By: #### L 501.9985, L500.4100, L500.4050 #### [facility] [address] [place], [address] Triglyceride [Mass/Vol] 225 mg/dL High [facility] Comment on above: Result Comment: The drugs N-Acetylcysteine and Metamizole may falsely depress this assay. Serum Triglycerides Reference Interval Normal <150 mg/dL Borderline high 150 - 199 mg/dL High 200 - 499 mg/dL Very High > or = 500 mg/dL Performed By: #### L 501.9985, L500.4100, L500.4050 #### [facility] [place], [address] No Panel InformationOrdered By: Kahdar Ball on 12-01-2023 Estimated GFR (MDRD) Amer 113 mL/min >60 [facility] Comment on above: GFR Calc Estimated GFR (MDRD) Non-Af Amer 94 mL/min >60 [facility] Comment on above: Non- GFR Calc VLDL Cholesterol 45 mg/dL 5-40 [facility] Serum or plasma calcium pierre urement (mass/volume)Ordered By: Khadar Ball on 12-01-2023 Calcium [Mass/Vol] 9.3 mg/dL 8.5-10.1 [facility] Serum or plasma creatinine m easurement (mass/volume)Ordered By: Khadar Ball on 12-01-2023 Creatinine [Mass/Vol] 0.90 mg/dL 0.70-1.30 [facility] [place] Comment on above: The validity of the calculated GFR & GFRAA in patients over 70 years has not been determined. Clinical correlation is essential. Serum or plasma urea nitroge n measurement (mass/volume)Ordered By: Khadar Ball on 12-01-2023 Urea nitrogen [Mass/Vol] 19 mg/dL 7-18 [facility] Thin prep Papanicolaou smear with manual screeningOrdered By: Khadar Ball on 12-01-2023 Thin prep Papanicolaou smear with manual screening 4.1 g/dL 3.2-5.0 [facility] Thin prep Papanicolaou smear with manual screening 23 U/L [facility] Thin prep Papanicolaou smear with manual screening 5 5- [facility] Whole blood hemoglobin A1c/t otal hemoglobin ratio (mass fraction)Ordered By: Khadar Ball on 12-01-2023 HbA1c (Bld) [Mass fraction] 7.6 % 3.8-5.6 [facility] Comment on above: Normal < 5.7 % Predi abetic 5.7 - 6.4 % Diabetic >or= 6.5 % Please note range changes. Basophil percentageOrdered B y: Dr. Ball on 12-16-2022 Bilirubin [Mass/Vol] 0.90 mg/dL 0.20-1.00 [place] Comment on above: For patients on eltr ombopag therapy, use of Dimension [place] TBIL is not recommended. Chloride [Moles/Vol] 103 mmol/L 98-107 [place] Glucose [Mass/Vol] 176 mg/dL 74-106 [facility] Comment on above: Fasting Glucose resu lt greater than or equal to 126 mg/dL suggests DIABETES MELLITUS per A.D.A. criteria. Potassium [Moles/Vol] 4.4 mmol/L 3.5-5.1 [facility] [place] Protein [Mass/Vol] 7.1 g/dL 6.4-8.2 [facility] Sodium [Moles/Vol] 136 mmol/L 136-145 [facility] - Chemistry and C hemistry - challengeOrdered By: Dr. Ball on 12-16-2022 ALP [Catalytic activity/Vol] 66 U/L 45-117 [facility] ALT [Catalytic activity/Vol] 47 U/L 16-61 [facility] CO2 [Moles/Vol] 28.0 mmol/L 21.0-32.0 [facility] Globulin (S) [Mass/Vol] 3.3 g/dL 2.2-4.2 [facility] Urea nitrogen/Creatinine [Mass ratio] 12.7 mg/mg 10-20 [facility] No Panel InformationOrdered By: Dr. Ball on 12-16-2022 Estimated GFR (MDRD) Amer 108 mL/min >60 [facility] Comment on above: GFR Calc Estimated GFR (MDRD) Non-Af Amer 89 mL/min >60 [facility] Comment on above: Non- GFR Calc Thyroid Stimulating Hormone (TSH) 1.45 uIU/mL 0.358-3.74 [facility] Urine Microalbumin/Creatini ne Ratio TNP [facility] Comment on above: Test not performed Serum or plasma albumin pierre urement (mass/volume)Ordered By: Dr. Ball on 12-16-2022 Albumin [Mass/Vol] 3.8 g/dL 3.2-5.0 [facility] Serum or plasma albumin/glob ulin mass ratioOrdered By: Dr. Ball on 12-16-2022 Albumin/Globulin [Mass ratio] 1.2 {ratio} 0.9-2.4 [facility] Serum or plasma calcium pierre urement (mass/volume)Ordered By: Dr. Ball on 12-16-2022 Calcium [Mass/Vol] 9.1 mg/dL 8.5-10.1 [facility] Serum or plasma creatinine m easurement (mass/volume)Ordered By: Dr. Ball on 12-16-2022 Creatinine [Mass/Vol] 0.95 mg/dL 0.70-1.30 [facility] [place] Comment on above: The validity of the calculated GFR & GFRAA in patients over 70 years has not been determined. Clinical correlation is essential. Serum or plasma urea nitroge n measurement (mass/volume)Ordered By: Dr. Ball on 12-16-2022 Urea nitrogen [Mass/Vol] 12 mg/dL 7-18 [facility] Thin prep Papanicolaou smear with manual screeningOrdered By: Dr. Ball on 12-16-2022 Thin prep Papanicolaou smear with manual screening 27 U/L 15-37 [facility] Thin prep Papanicolaou smear with manual screening 5 5-15 [facility] Thin prep Papanicolaou smear with manual screening < 5.0 mg/L NO RANGE EST. [facility] Urine creatinine measurement (mass/volume)Ordered By: Dr. Ball on 12-16-2022 Creatinine (U) [Mass/Vol] 73.60 mg/dL NO RANGE EST. [facility] Whole blood hemoglobin A1c/t otal hemoglobin ratio (mass fraction)Ordered By: Dr. Ball on 12-16-2022 HbA1c (Bld) [Mass fraction] 8.3 % 3.8-5.6 [facility] Comment on above: Normal < 5.7 % Predi abetic 5.7 - 6.4 % Diabetic >or= 6.5 % Please note range changes. Basophil percentageon 2021 Bilirubin [Mass/Vol] 0.60 mg/dL 0.20-1.00 [place] Work Phone: Comment on above: For patients on eltr ombopag therapy, use of Dimension [place] TBIL is not recommended. Chloride [Moles/Vol] 99 mmol/L 98-107 [place] Work Phone: Glucose [Mass/Vol] 280 mg/dL 74-106 [facility] Work Phone: Comment on above: Moderate Lipemia, Re sult may be falsely increased.Glucose result greater than or equal to 200 mg/dLsuggests DIABETES MELLITUS per A.D.A. criteria. Potassium [Moles/Vol] 4.3 mmol/L 3.5-5.1 [facility] [place] Work Phone: Comment on above: Moderate Hemolysis, Result may be falsely increased. Protein [Mass/Vol] 6.8 g/dL 6.4-8.2 [facility] Work Phone: Sodium [Moles/Vol] 132 mmol/L 136-145 [facility] Work Phone: Laboratory - Chemistry and C hemistry - challengeon 01-28-2022 ALP [Catalytic activity/Vol] 89 U/L 45-117 [facility] Work Phone: ALT [Catalytic activity/Vol] 55 U/L 16-61 [facility] Work Phone: CO2 [Moles/Vol] 28.0 mmol/L 21.0-32.0 [facility] Work Phone: Globulin (S) [Mass/Vol] 2.9 g/dL 2.2-4.2 [facility] Work Phone: Urea nitrogen/Creatinine [Mass ratio] 17.9 mg/mg 10-20 [facility] Work Phone: No Panel Informationon 01-28 Estimated GFR (MDRD) Amer 108 mL/min >60 [facility] Work Phone: Comment on above: GFR Calc Estimated GFR (MDRD) Non-Af Amer 90 mL/min >60 [facility] Work Phone: Comment on above: Non- GFR Calc Urine Microalbumin/Creatini ne Ratio 6.7 mg/g CRE <30 [facility] Work Phone: Serum or plasma albumin pierre urement (mass/volume)on 01-28-2022 Albumin [Mass/Vol] 3.9 g/dL 3.2-5.0 [facility] Work Phone: Serum or plasma albumin/glob ulin mass ratioon 01-28-2022 Albumin/Globulin [Mass ratio] 1.3 {ratio} 0.9-2.4 [facility] Work Phone: Serum or plasma calcium pierre urement (mass/volume)on 01-28-2022 Calcium [Mass/Vol] 8.8 mg/dL 8.5-10.1 [facility] Work Phone: Serum or plasma creatinine m easurement (mass/volume)on 01-28-2022 Creatinine [Mass/Vol] 0.95 mg/dL 0.70-1.30 [facility] [place] Work Phone: Comment on above: The validity of the calculated GFR & GFRAA in patients over 70 years has not been determined. Clinical correlation is essential. Serum or plasma urea nitroge n measurement (mass/volume)on 01-28-2022 Urea nitrogen [Mass/Vol] 17 mg/dL 7-18 [facility] Work Phone: Thin prep Papanicolaou smear with manual screeningon 01-28-2022 Thin prep Papanicolaou smear with manual screening 31 U/L 15-37 [facility] Work Phone: Thin prep Papanicolaou smear with manual screening 5 5-15 [facility] Work Phone: Thin prep Papanicolaou smear with manual screening 10.8 mg/L NO RANGE EST. [facility] Work Phone: Urine creatinine measurement (mass/volume)on 01-28-2022 Creatinine (U) [Mass/Vol] 161.00 mg/dL NO RANGE EST. [facility] Work Phone: Whole blood hemoglobin A1c/t otal hemoglobin ratio (mass fraction)on 01-28-2022 HbA1c (Bld) [Mass fraction] 9.2 % 3.8-5.6 [facility] Work Phone: Comment on above: Normal < 5.7 % Predi abetic 5.7 - 6.4 % Diabetic >or= 6.5 % Please note range changes. PPD Result Noteon 03-18-2018 PPD Result Note PPD Results VIDA HAN has had the PPD results read:. The PPD was placed on 03-16-18 The PPD was read on 03-18-18 It was Read by Milagro Galvin RN. PPD Result is negative and showed 0 mm induration Signatures Electronically signed by : Milagro Galvin R.N.; Mar 18 2018 5:22PM EST (Author) Normal [employer] CARDIAC STRESS/REST (MYOCARD IAL PERFUSION/MIBI)on 06-26-2017 CARDIAC STRESS/REST (MYOCARDIAL PERFUSION/MIBI) Name: VIDA HAN STUDY:PART 2 STRESS OR REST (NO CHARGE); CARDIAC STRESS/REST (MYOCARDIALPERFUSION/MIBI); 06/26/2017 12:59 pm INDICATION:Signs/Symptoms: abnormal ekg, dyspnea on exertion. COMPARISON:None. [id number] ORDERING CLINICIAN:JOSE MORE TECHNIQUE:[facility] MYOCARD[facility] PERF[facility]AN, ONE DAY PROTOCOL The patient received an intravenous dose of 11.0 mCi of Tc-99mMyoview and resting emission tomographic (SPECT) images of themyocardium were acquired. The patient then underwent treadmill stressexercising to 88% of MPHR and achieving 7.0 METS. At peak stress anadditional dose of 34.0 mCi of Tc-99m Myoview was administered andstress phase SPECT images of the myocardium were then acquired. Thisacquisition included ECG-gated images to assess and quantifyventricular function. FINDINGS:Stress and rest images both demonstrate a normal distribution ofperfusion throughout all LV segments with no sign of ischemia. Mildinferior irregularities likely reflect diaphragmatic attenuationartifact. ECG-gated images demonstrate normal LV size and myocardialcontractility with an LV ejection fraction of 65% (normal above 45percent). IMPRESSION:1. Normal stress myocardial perfusion imaging.2. Well-maintained left ventricular function.Electronically signed by: MARY LOU US MD Normal [facility] PART 2 STRESS OR REST (NO CH ARGE)on 06-26-2017 PART 2 STRESS OR REST (NO CHARGE) Name: VIDA HAN STUDY:PART 2 STRESS OR REST (NO CHARGE); CARDIAC STRESS/REST (MYOCARDIALPERFUSION/MIBI); 06/26/2017 12:59 pm INDICATION:Signs/Symptoms: abnormal ekg, dyspnea on exertion. COMPARISON:None. [id number] ORDERING CLINICIAN:JOSE MORE TECHNIQUE:DIVISION OF NUCLEAR [facility] MYOCARDIAL PERFUSION SCAN, ONE DAY PROTOCOL The patient received an intravenous dose of 11.0 mCi of Tc-99mMyoview and resting emission tomographic (SPECT) images of themyocardium were acquired. The patient then underwent treadmill stressexercising to 88% of MPHR and achieving 7.0 METS. At peak stress anadditional dose of 34.0 mCi of Tc-99m Myoview was administered andstress phase SPECT images of the myocardium were then acquired. Thisacquisition included ECG-gated images to assess and quantifyventricular function. FINDINGS:Stress and rest images both demonstrate a normal distribution ofperfusion throughout all LV segments with no sign of ischemia. Mildinferior irregularities likely reflect diaphragmatic attenuationartifact. ECG-gated images demonstrate normal LV size and myocardialcontractility with an LV ejection fraction of 65% (normal above 45percent). IMPRESSION:1. Normal stress myocardial perfusion imaging.2. Well-maintained left ventricular function.Electronically signed by: MARY LOU US MD Normal [facility] Syngo Nuclear Orderon 2016 Syngo Nuclear Order [facility] , [address] [place] [address], [address] [address] and Qoi[employer]f Treadmill Stress TestPatient Name: Vida Barba Ordering Physician: [id number] Jose More MD HenicoStudy Date: 06/26/2017 Reading Physician: [id number] Sally Mendes MDMRN/PID: [id number] Referring Physician: Abe Soto DOAccession/Order#: [id number] PCP: Abe Soto DODate of : 1970 Fellow:Gender: M [place] [facility] Stress LabAdmit Date: Tinsmith Helper:Admission Status: Outpatient Nurse: Ju Hughes RN, CVRN-BCHeight: 180.34 cm Grinding Mill Operator: n/aWeight: 117.94 kg Technologist: Val Rainey CCTBSA: 2.36 m2 Additional Staff:BMI: 36.26 kg/m2 cc report to:Age: 47 years cc report to: [id number] Jose More MDStudy Type: Syngo Nuclear OrderDiagnosis/ICD: R06.02 Shortness of breath; R94.31 Abnormal electrocardiogram [ECG] [EKG]Indication: Dyspnea and Abnormal EKGProcedure/CPT: [id number] NUCLEAR EXERCISE STRESS TEST (59981) Study Details: Correct procedure and correct patient verified verbally and with ID Band checked. Patient History: Family history of coronary artery disease, sedentary life style, hypertension, hyperlipidemia and lipid therapy.Allergies: None.Smoker: Current.Diabetes: Yes, managed with Oral medicine. Medications: The patient's prescribed medication is Lipitor, Glimepride, Lisinopril, Metformin. The patient did not take medications as prescribed. Patient Performance: The patient exercised to stage II on a Oscar protocol for 6 minutes and 00 seconds, achieving 7 METS. Patient received a total of 34.0 mCi of Myoview at 12:01:27 PM. The peak heart rate achieved was 153 bpm, which was 88 % of the age predicted target heart rate of 175 bpm. The resting blood pressure was 112/68 mmHg with a heart rate of 86 bpm. The standing blood pressure was 108/70 mmHg with a heart rate of 90 bpm. The patient's functional capacity was below average. The patient developed no symptoms during the stress exam. The blood pressure response was normal. The test was terminated due to: MPHR >85% and completed lab protocol. 6 minutes in to the recvoery phase, pt developed nonspecific T wave inversion change in infeirorlateral leads. Patient has met the discharge criteria and is discharged to home. Baseline ECG: Resting ECG showed normal sinus rhythm with nonspecific ST-T wave changes. Stress ECG: Stress ECG showed sinus tachycardia, with no abnormal findings. No ST changes. Stress Stage Data:+---+------+-------+-- +----+------- -----+HR Sys BPDias BPRPE METSComments +---+------+-------+------- ---------+----+ +86 112 68 +---+------+-------+------- ---------+----+ +90 108 70 +---+------+-------+------- ---------+----+ +[id number] 72 13=Somewhat hard4.6 0300 minutes+---+------+-------+ +----+----- -------+[id number] 80 15=Hard 7 0600 minutes+---+------+-------+ +----+----- -------+ Recovery ECG: Recovery ECG showed normal sinus rhythm, with no abnormal findings. The heart rate recovery was normal. + +---+------+-- -----+ + HR Sys BPDias BPComments + +---+------+-- -----+ +Recovery I [id number] 68 0100 minutes+ +---+-- ----+-------+ +R ecovery II [id number] 60 0200 minutes+ +---+-- ----+-------+ +R ecovery [id number] 62 0400 minutes+ +---+-- ----+-------+ +R ecovery IV 98 017 41 8726 minutes+ +---+-- ----+-------+ +R ecovery V 99 0800 minutes+ +---+-- ----+-------+ + Summary: 1. No clinical or electrocardiographic evidence for ischemia at a maximal workload. 2. No ischemia by ECG at max workload. 3. Normal Stress Test. 4. Nuclear image results are reported separately. 5. The adequate level of stress was achieved.[id number] Sally Mendes MDElectronically signed on 06/26/2017 at 12:50:37 PM Final Normal [facility] CBC AND DIFFERENTIALon 06-02 % AUTOMATED IMMATURE GRAN 0.6 % Normal 0.0 - 0.9 [facility] Comment on above: Result Comment: Perc ent differential counts (%) should be interpreted in the context of the absolute cell counts (cells/L). Performed By: #### C BCDF ####[facility] [place] [address] % NEUTROPHIL 54.5 % Normal 40.0 - 80.0 [facility] Comment on above: Performed By: #### C BCDF ####[facility] [place] [address] Basophils/100 WBC Auto (Bld) 0.07 x10E9/L Normal 0.00 - 0.10 [facility] Comment on above: Performed By: #### C BCDF ####[facility] [place] [address] Basophils/100 WBC Auto (Bld) 0.6 % Normal 0.0 - 2.0 [facility] Comment on above: Performed By: #### C BCDF ####[facility] [place] [address] Eosinophils 0.23 10*3/uL Normal 0.00 - 0.70 [facility] Comment on above: Performed By: #### C BCDF ####[facility] [place] [address] Eosinophils/100 leukocytes 2.1 % Normal 0.0 - 6.0 [facility] Comment on above: Performed By: #### C BCDF ####[facility] [place] [address] Erythrocyte distribution width Auto Ratio (RBC) 13.2 % Normal 11.5 - 14.5 [facility] Comment on above: Performed By: #### C BCDF ####[facility] [place] [address] Erythrocytes (RBC) 5.35 x10E12/L Normal 4.50 - 5.90 [facility] Comment on above: Performed By: #### C BCDF ####[facility] [place] [address] Hematocrit (HCT) 51.2 % Normal 41.0 - 52.0 [facility] Comment on above: Performed By: #### C BCDF ####[facility] [place] [address] Hemoglobin mass conc (Bld) 16.6 g/dL Normal 13.5 - 17.5 [facility] Comment on above: Performed By: #### C BCDF ####[facility] [place] [address] Lymphocytes 3.58 10*3/uL Normal 1.20 - 4.80 [facility] Comment on above: Performed By: #### C BCDF ####[facility] [place] [address] Lymphocytes/100 leukocytes 33.2 % Normal 13.0 - 44.0 [facility] Comment on above: Performed By: #### C BCDF ####[facility] [place] [address] MCHC mass conc (RBC) 32.4 g/dL Normal 32.0 - 36.0 [facility] Comment on above: Performed By: #### C BCDF ####[facility] [place] [address] MCV 96 fL Normal 80 - 100 [facility] Comment on above: Performed By: #### C BCDF ####[facility] [place] [address] Monocytes 0.97 10*3/uL Normal 0.10 - 1.00 [facility] Comment on above: Performed By: #### C BCDF ####[facility] [place] [address] Monocytes/100 leukocytes 9.0 % Normal 2.0 - 10.0 [facility] Comment on above: Performed By: #### C BCDF ####[facility] [place] [address] Neutrophils 5.87 10*3/uL Normal 1.20 - 7.70 [facility] Comment on above: Performed By: #### C BCDF ####[facility] [place] [address] Nucleated erythrocytes 0.0 /100 WBC Normal 0.0-0.0 [facility] Comment on above: Performed By: #### C BCDF ####[facility] [place] [address] Platelets 208 10*3/uL Normal 150 - 450 [facility] Comment on above: Performed By: #### C BCDF ####[facility] [place] [address] WBC (Leukocytes) 10.8 10*3/uL Normal 4.4 - 11.3 [facility] Comment on above: Performed By: #### C BCDF ####[facility] [place] [address] COMPREHENSIVE PANELon 2016 Alanine aminotransferase (ALT) 31 U/L Normal 10 - 52 [facility] Comment on above: Result Comment: Kailee ents treated with Sulfasalazine may generate falsely decreased results for ALT. Performed By: #### C MP ####[facility] [place] [address] Albumin 4.6 g/dL Normal 3.4 - 5.0 [facility] Comment on above: Performed By: #### C MP ####[facility] [place] [address] Alkaline phosphatase (ALP) 71 U/L Normal 33 - 120 [facility] Comment on above: Performed By: #### C MP ####[facility] [place] [address] Anion gap 12 mmol/L Normal 10 - 20 [facility] Comment on above: Performed By: #### C MP ####[facility] [place] [address] Aspartate aminotransferase (AST) 19 U/L Normal 9 - 39 [facility] Comment on above: Performed By: #### C MP ####[facility] [place] [address] Bicarbonate (HCO3) 30 mmol/L Normal 21 - 32 [facility] Comment on above: Performed By: #### C MP ####[facility] [place] [address] Bilirubin (total) 0.9 mg/dL Normal 0.0 - 1.2 [facility] Comment on above: Performed By: #### C MP ####[facility] [place] [address] Calcium 10.3 mg/dL Normal 8.6 - 10.6 [facility] Comment on above: Performed By: #### C MP ####[facility] [place] [address] Chloride 103 mmol/L Normal 98 - 107 [facility] Comment on above: Performed By: #### C MP ####[facility] [place] [address] Creatinine 0.79 mg/dL Normal 0.50 - 1.30 [facility] Comment on above: Performed By: #### C MP ####[facility] [place] [address] eGFR (non-black) mL/min/{1.73_m2} Normal >60 [facility] Comment on above: Performed By: #### C MP ####[facility] [place] [address] Result Comment: CALC ULATIONS OF ESTIMATED GFR ARE PERFORMED USING THE MDRD STUDY EQUATION FOR THE IDMS-TRACEABLE CREATININE METHODS. CLIN CHEM 2007;53:766-72 Glucose mass conc 120 mg/dL High 74 - 99 [facility] Comment on above: Performed By: #### C MP ####[facility] [place] [address] Potassium molar conc 4.4 mmol/L Normal 3.5 - 5.3 [facility] Comment on above: Performed By: #### C MP ####[facility] [place] [address] Protein 6.9 g/dL Normal 6.4 - 8.2 [facility] Comment on above: Performed By: #### C MP ####[facility] [place] [address] Sodium 141 mmol/L Normal 136 - 145 [facility] Comment on above: Performed By: #### C MP ####[facility] [place] [address] Urea nitrogen 14 mg/dL Normal 6 - 23 [facility] Comment on above: Performed By: #### C MP ####[facility] [place] [address] HEMOGLOBIN A1Con 06-02-2017 Glucose mass conc 166 mg/dL Normal [facility] Comment on above: Performed By: #### H BA1E ####[facility] [place] [address] Hemoglobin A1c/Hemoglobin.total mass fraction (Bld) 7.4 % Normal [facility] Comment on above: Result Comment: Diag nosis of Diabetes-Adults Non-Diabetic: < or = 5.6% Increased risk for developing diabetes: 5.7-6.4% Diagnostic of diabetes: > or = 6.5%. Monitoring of Diabetes Age (y) Therapeutic Goal (%) Adults: >18 <7.0 Pediatrics: 13-18 <7.5 7-12 <8.0 0- 6 7.5-8.5 [place] [employer]. Diabetes Care 33(S1), Aug 2009. Performed By: #### H BA1E ####[facility] [place] [address] LIPID PANEL (CORONARY RISK 2 )on 06-02-2017 Cholesterol 118 mg/dL Normal 0 - 199 [facility] Comment on above: Result Comment: . AG E DESIRABLE BORDERLINE HIGH HIGH 0-19 Y 0 - 169 170 - 199 >/= 200 20-24 Y 0 - 189 190 - 224 >/= 225 >24 Y 0 - 199 200 - 239 >/= 240 All ranges are based on fasting samples. Specific therapeutic targets will vary based on patient-specific cardiac risk.. Pediatric guidelines reference:Pediatrics 2011, 128(S5). Adult guidelines reference: NCEP ATPIII Guidelines, STEVE 2001, 258:2486-97. Venipuncture immediately after or during the administration of Metamizole may lead to falsely low results. Testing should be performed immediately prior to Metamizole dosing. Performed By: #### L IPID ####[facility] [place] [address] Cholesterol in VLDL mass conc 65 mg/dL High 0 - 40 [facility] Comment on above: Performed By: #### L IPID ####[facility] [place] [address] Cholesterol to HDL Ratio 4.2 {ratio} Normal [facility] Comment on above: Result Comment: REF VALUESDESIRABLE < 3.4HIGH RISK > 5.0 Performed By: #### L IPID ####[facility] [place] [address] HDL Cholesterol 28.1 mg/dL Abnormal [facility] Comment on above: Result Comment: . AG E VERY LOW LOW NORMAL HIGH 0-19 Y < 35 < 40 40-45 ---- 20-24 Y ---- < 40 >45 ---- >24 Y ---- < 40 40-60 >60. Performed By: #### L IPID ####[facility] [place] [address] LDL Cholesterol 25 mg/dL Normal 0 - 99 [facility] Comment on above: Result Comment: . ERAN DAN AGE DESIRABLE OPTIMAL HIGH HIGH VERY HIGH 0-19 Y 0 - 109 --- 110-129 >/= 130 ---- 20-24 Y 0 - 119 --- 120-159 >/= 160 ---- >24 Y 0 - 99 100-129 130-159 160-189 >/=190. Performed By: #### L IPID ####[facility] [place] [address] NON-HDL CHOLESTEROL 90 mg/dL Normal [facility] Comment on above: Result Comment: AGE DESIRABLE BORDERLINE HIGH HIGH VERY HIGH 0-19 Y 0 - 119 120 - 144 >/= 145 >/= 160 20-24 Y 0 - 149 150 - 189 >/= 190 ---- >24 Y 30 MG/DL ABOVE LDL CHOLESTEROL GOAL. Performed By: #### L IPID ####[facility] [place] [address] Triglyceride 326 mg/dL High 0 - 149 [facility] Comment on above: Result Comment: . AG E DESIRABLE BORDERLINE HIGH HIGH VERY HIGH 0 D-90 D 19 - 174 ---- ---- ----91 D- 9 Y 0 - 74 75 - 99 >/= 100 ---- 10-19 Y 0 - 89 90 - 129 >/= 130 ---- 20-24 Y 0 - 114 115 - 149 >/= 150 ---- >24 Y 0 - 149 150 - 199 200- 499 >/= 500. Venipuncture immediately after or during the administration of Metamizole may lead to falsely low results. Testing should be performed immediately prior to Metamizole dosing. Performed By: #### L IPID ####[id number] [place] [address] PROSTATE SPECIFIC AGon 06-02 PSA 0.63 ng/mL Normal 0.00 - 4.00 [facility] Comment on above: Result Comment: The FDA requires that the method used for PSAassay be reported to the physician. Valuesobtained with different assay methods must notbe used interchangeably. uses the ADVIACatawikiaur PSA method, which is a sandwichimmunoassay using chemiluminescence forquantitation. The assay is approved formeasurement of prostate-specific antigen (PSA)in serum and may be used in conjunction witha digital rectal examination in men 50 yearsand older as an aid in detection of prostatecancer. Performed By: #### P SA ####[facility] [place] [address] TSHon 06-02-2017 Thyroid stimulating hormone (TSH) 1.96 m[IU]/L Normal 0.44 - 3.98 [facility] Comment on above: Result Comment: TSH testing is performed using different testing methodology at [facility] than at other [facility]. Direct result comparisons should only be made within the same method.. Patients receiving more than 5 mg/day of biotin may have interference in test results. A sample should be taken no sooner than eight hours after previous dose. Contact [phone] for additional information. Performed By: #### T SH2 ####[facility] [place] [address] Encounters Encounter Date Encounter Type Care Provider Facility Start: 09-28-2024 End: 09-28-2024 [facility] Facility:[facility] Start: 09-27-2024 End: 09-27-2024 [facility] Facility:[facility] Start: 09-21-2024 End: 09-21-2024 ambulatory Khadar Ball Facility:[facility] Start: 07-06-2024 End: 07-06-2024 ambulatory Khadar Ball Facility:[facility] Start: 05-03-2024 End: 05-03-2024 ambulatory Khadar Ball Facility:[facility] Start: 12-01-2023 End: 12-01-2023 ambulatory [facility] Work Phone: Start: 12-01-2023 End: 12-01-2023 Patient encounter procedure [facility] Start: 12-01-2023 End: 12-01-2023 ambulatory Khadar Ball Facility:[facility] Start: 12-16-2022 End: 12-16-2022 ambulatory [facility] Work Phone: Start: 12-16-2022 End: 12-16-2022 Patient encounter procedure [facility] Start: 01-28-2022 End: 01-28-2022 Patient encounter procedure [facility] Start: 06-26-2017 Ambulatory Jose More Facility:[facility] Procedures Date Procedure Procedure Detail Performing Clinician Start: 02-10-2018 Follow-up visit Cataract surgery Abe gavin DO History of Incision And Drainage Of Pilonidal Cyst Abe Soto DO Tonsillectomy Abe Soto DO Immunizations Immunization Date Immunization Notes Care Provider Fa cili 03-16-2018 tuberculin skin test ; purified protein derivative solution, intradermal; Translations: [Tubersol 5 UNIT/0.1ML Intradermal Solution] Abe Soto DO [facility] Work Phone: Payers Date Payer Category Payer Private Health Insurance [id number] 2023 Self-pay Medicare [id number] Private Health Insurance [id number] Self-pay SELF PAY INSURANCE [id number] Unknown [id number] Unknown [id number] Unknown [id number] Unknown [id number] Unknown [id number] Unknown [id number] Unknown [id number] Social History Date Type Detail Facility Start: 1970 Sex Assigned At Male [facility] NEGATED: Highlighted row - - [facility] Work Phone: Medical Equipment Procedure Code Equipment Code Equipment Origin al Text Equipment Identifier Dates TRUEtest Test In Vitro Strip TEST ONCE DAILY. Quantity: 1 Refills: 0 Abe Soto DO Start : 24-Aug-2013 Active 100 Strip Box Start: 08-24-2013 TRUEtest Test In Vitro Strip TEST ONCE DAILY. Quantity: 1 Refills: 0 Abe Soto DO Start : 24-Aug-2013 Active 100 Strip Box Start: 08-24-2013 Functional Status Date Assessment Result Facility NEGATED: Highlighted row Functional performance Functional status health issues are not documented Disease [facility] Work Phone: Mental Status Date Assessment Result Facility NEGATED: Highlighted row Cognitive function [Interpretation] Cognitive status health issues are not documented Disease [facility] Work Phone: Evaluation note Note Date & Type Note Facility Evaluation note No assessment information availa [facility] Work Phone: Instructions Note Date & Type Note Facility Instructions Name Instructions not documented [facility] Work Phone: Summary Purpose Family History No Family History Records Found Mother Name Dates Details Family history of alcoholism (V17.0, Z81.1) Status:Active Family history of stroke(V17 .1, Z82.3) Status:Active Advance Directives No Advanced Directives Records FoundNo Advanced Directives Records FoundNo Advanced Directives Records Found Additional Source Comments (unrecognized sect ion and content) No Status Records FoundNo Status Records FoundNo Status Records Found INFORMATION SOURCE (unrecogn ized section and content) DATE CREATED AUTHOR 02/10/2018 [facility] DATE CREATED AUTHOR AUTHOR'S ORGANIZ ATION 01/26/2019 [employer] DATE CREATED AUTHOR AUTHOR'S ORGANIZ ATION 10/15/2024 [facility] Goals (unrecognized section and content) Goals may be documented in a n alternate sectionGoals may be documented in an alternate sectionGoals may be documented in an alternate section Care Teams (unrecognized sec tion and content) Team Status: Active Member Role Status Dates Dr. Khadar Ball MD Family Provider Active Dr. Khadar Ball MD Primary Care Provider Active Team Status: Inactive Member Role Status Dates Dr. Khadar Ball MD Primary Care Provider, Attending Jameson lamas Active FOR RECORDS PERTAINING TO PATIENTS WHO ARE OR HAVE BEEN ENROLLED IN A CHEMICAL DEPENDENCY/SUBSTANCEABUSE PROGRAM, SOME INFORMATION MAY BE OMITTED. This clinical summary was aggregated from multiple sources. Caution should be exercised in using it in the provision of clinical care. This summary normalizes information from multiple sources, and as a consequence, information in this document may materially change the coding, format and clinical context of patient data. In addition, data may be omitted in some cases. CLINICAL DECISIONS SHOULD BE BASED ON THE PRIMARY CLINICAL RECORDS. [facility] [employer] [facility]. provides no warranty or guarantee of the accuracy or completeness of information in this document.
[2025-01-31 10:50] LABS: Hematocrit 49.3 % (40-54); Hemoglobin 16.4 g/dL (13.0-16.5); Mean Corp Hgb Conc 33.3 g/dL (32-36); Mean Corpuscular Volume 96.1 fL (80-94); Mean Platelet Vol. 9.6 fl (6.2-12.0); Platelet Count 218 K/mm3 (150-450); RBC Distribution Width CV 13.4 % (11.6-14.6); Red Blood Count 5.13 M/mm3 (4.6-6.2)
[2025-01-31 11:04] LABS: Microalbumin,Random Urine < 12.0 mg/L (NO RANGE EST.); Microalbumin:Creatinine Ratio UNABLE TO CALCULATE mg/g CRE
[2025-01-31 18:15] LABS: ALB/GLOB Ratio 1.6 RATIO (0.9-2.4); AST(SGOT) 25 U/L (<=37); Alanine Aminotransfer ALT/SGPT 27 U/L (<=46); Albumin, Serum 4.1 g/dL (3.5-5.0); Alkaline Phosphatase 97 U/L (40-129); Anion Gap 12 (5-15); BUN 11 mg/dL (4-19); BUN/Creat Ratio 14.2 RATIO (10-20); Carbon Dioxide 25.8 mmol/L (21.0-32.0); Chloride 99 mmol/L (98-108); Creatinine, Serum 0.79 mg/dL (0.70-1.20); EST Glomerular Filtration Rate 107 (>60); Globulin 2.5 g/dL (2.2-4.2); Glucose 207 mg/dL (70-99); Potassium 4.5 mmol/L (3.3-5.1); Protein, Total 6.6 g/dL (5.9-8.4); Sodium Level 137 mmol/L (133-145)
[2025-02-01 16:00] LABS: Cholesterol 124 mg/dL (<=200); High Density Lipoprotein 24 mg/dL; Low Density Lipoprotein Calc. -6 mg/dL; Total Bilirubin 0.51 mg/dL (0.00-1.30); Triglycerides 527 mg/dL; Very Low Density Lipoprotein 105 mg/dL (5-40)
== END | disposition home or self-care (01) ==
LOC: MTLAB 07:19
PROVIDERS: PCP Family Medicine; Referring Provider Family Medicine; Visit Provider Family Medicine
DX: E11.65 Type 2 diabetes mellitus with hyperglycemia (principal)
CPT/HCPCS: 36415; 80053; 80061; 82043; 82570; 84443; 85027